=== PATIENT | female | born 1990 | race African-American/Black ===

== ENCOUNTER 2016-12-10 18:23 | Emergency (ER) | payer OTHER, MEDICAID ==
[2016-12-10 21:02] LABS: CONTROL LINE UCG INT CTR LINE PRESENT
[2016-12-10] MEDS ORDERED: PHENAZOPYRIDINE 100 MG TAB As Ordered ONE (21:26)
[2016-12-10] MEDS ORDERED: CIPROFLOXACIN 500 MG TAB As Ordered ONE (21:26)
--- NOTE | 2016-12-10 21:33 | EDDOCDS ---
Nurse's Notes [facility] Name: Antonietta Camarillo Age: 26 yrs Sex: Female : 1990 Arrival Date: 12/10/2016 Time: 18:23 Bed Triage 3 Private MD: NO PRIMARY PHYSICIAN, . Diagnosis: Urinary tract infection, site not specified Presentation: 12/10 18:37 Presenting complaint: Patient states: pt reports vaginal discharge, denies pain with ead urination. "I don't know if I have a UTI, BV, or a yeast infection." Reports lower abdominal pain, pressure/cramping. Adult Sepsis Screening: The patient does not have new or worsening altered mentation. Patient's respiratory rate is less than 22. Systolic blood pressure is greater than 100. Patient has a qSOFA score of 0- Negative Sepsis Screen. Suicide/Homicide risk assessment- the patient denies having any suicidal and/or homicidal ideations and does not present with any other emotional, behavioral or mental health complaints. Status: Patient is not a career services representative or dependent. Transition of care: patient was not received from another setting of care. 18:37 Acuity: TAD Level 3 ead 18:37 Method Of Arrival: Walkin/Carried/Asstd ead Triage Assessment: 18:39 General: Appears in no apparent distress, comfortable, Behavior is appropriate for age, ead cooperative. Pain: Denies pain. HIV screening NA for this visit Offered previously. GI: Reports lower abdominal pain. : Reports discharge Denies burning with urination, vaginal bleeding. Derm: Skin is pink, warm & dry. 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 none - PMHx: Anemia; - PSHx: none; - Social history: Smoking status: Patient states former smoker of tobacco. No barriers to communication noted, The patient speaks fluent Kazakh, Speaks appropriately for age. - Family history: Not pertinent. - : The pt / caregiver states he / she is not on anticoagulants. Home medication list is obtained from the patient. - Exposure Risk Screening:: None identified. Screenin:29 Screening information is obtained from the patient. Fall risk: No risks identified. ck1 Assistance ADL's: requires no assistance with activities of daily living. Abuse/DV Screen: The patient / caregiver reports he/she is: not in a situation that causes fear, pain or injury. Nutritional screening: No deficits noted. Advance Directives: Currently, there is no health care proxy. home support is adequate. Assessment: 21:29 General: Appears in no apparent distress, comfortable, Behavior is appropriate for age, ck1 cooperative. Pain: Denies pain. Respiratory: Respiratory effort is unlabored, Respiratory pattern is regular, symmetrical. : Denies burning with urination, vaginal bleeding. Derm: Skin is intact, is healthy with good turgor, Skin is pink, warm & dry. Vital Signs: 18:25 BP 133 / 87; Pulse 86; Resp 18 S; Temp 97.6(O); Pulse Ox 100% on R/A; Weight 50.8 kg gr2 (R); Height 5 ft. 4 in. (162.56 cm) (R); Pain 2/10; 21:27 BP 126 / 80 LA Sitting (auto/reg); Pulse 71; Resp 16; Temp 97.9(O); Pulse Ox 99% on jrd R/A; Pain 0/10; 18:25 Body Mass Index 19.22 (50.80 kg, 162.56 cm) gr2 Vitals: 18:25 Log In Time: December 10, 2016 at 18:25. gr2 ED Course: 18:25 Patient visited by Yoli Landa. gr2 18:25 NO PRIMARY PHYSICIAN, . is Private Physician. gr2 18:25 Patient moved to Waiting gr2 18:26 Patient visited by Yoli Landa. gr2 18:27 Patient moved to Pre RCE gr2 18:38 Triage Initiated ead 20:31 Patient moved to Triage 3 jrd 20:34 Patient visited by Janice Hart RN. ck1 20:39 UCG- In Lab Sent. jrd 20:39 Urine Culture Sent. jrd 20:39 UA Sent. jrd 20:43 [facility] Gan [facility]. ef1 20:43 Yosi Antony DO is Attending Physician. ef1 20:43 Patient visited by Felicia Gan PA-C. ef1 21:13 Patient visited by Liat Mathis RN. nn1 21:25 [facility] is Referral Physician. ef1 21:27 Patient visited by Danny Andrew PCA. jrd 21:29 The patient / caregiver is instructed regarding the plan of care and ED course. ck1 21:29 No IV's were initiated during this patient's visit. No procedures done that require ck1 assistance. Administered Medications: 21:28 Drug: Ciprofloxacin 500 mg [ciprofloxacin 500 mg tablet (1 tabs)] Route: PO; ck1 21:28 Drug: Phenazopyridine 200 mg [phenazopyridine 100 mg tablet (2 tabs)] Route: PO; ck1 Order Results: Lab Order: UA; SPEC'M 12/10/16 20:36 Test: APPEARANCE, URINE; Value: HAZY; Range: CLEAR; Status: F Test: COLOR, URINE; Value: YELLOW; Range: YELLOW; Status: F Test: PH,URINE; Value: 6.0; Range: 5.0-9.0; Units: UNITS; Status: F Test: SPECIFIC GRAVITY URINE AUTO; Value: 1.006; Range: 1.002-1.035; Status: F Test: PROTEIN, URINE AUTO; Value: NEGATIVE; Range: NEGATIVE; Units: mg/dL; Status: F Test: GLUCOSE, URINE (UA) AUTO; Value: NEGATIVE; Range: NEGATIVE; Units: mg/dL; Status: F Test: KETONE, URINE AUTO; Value: NEGATIVE; Range: NEGATIVE; Units: mg/dL; Status: F Test: UROBILINOGEN, URINE AUTO; Value: 0.2; Range: 0.0-2.0; Units: mg/dL; Status: F Test: BILIRUBIN, URINE AUTO; Value: NEGATIVE; Range: NEGATIVE; Status: F Test: NITRITE, URINE AUTO; Value: POSITIVE; Range: NEGATIVE; Status: F Test: LEUKOCYTE ESTERASE, URINE AUTO; Value: 1+; Range: NEGATIVE; Abnormal: Above high normal; Status: F Test: BLOOD, URINE BLOOD; Value: NEGATIVE; Range: NEGATIVE; Status: F Test: SPERM, URINE AUTO; Range: NONE; Status: I Test: WBC, URINE AUTO; Value: 7; Range: 0-3; Abnormal: Above high normal; Units: /HPF; Status: F Test: RBC, URINE AUTO; Value: 2; Range: 0-3; Units: /HPF; Status: F Test: BACTERIA, URINE AUTO; Value: 2+; Range: NEGATIVE; Abnormal: Above high normal; Status: F Test: SQUAMOUS EPITHELIAL CELL UR AU; Value: 5; Range: 0-6; Units: /HPF; Status: F Test: MUCUS, URINE; Value: SMALL; Range: NEGATIVE; Status: F Test: HYALINE CAST, URINE AUTO; Value: 0; Range: 0-1; Units: /LPF; Status: F Lab Order: UCG- In Lab; SPEC'M 12/10/16 20:36 Test: URINE PREG TEST; Value: NEGATIVE; Range: NEGATIVE; Status: F Outcome: 21:25 Discharge ordered by Provider. ef1 21:28 Discharge Assessment: Patient awake, alert and oriented x 3. No cognitive and/or ck1 functional deficits noted. Patient verbalized understanding of disposition instructions. patient administered narcotics - no. The following High Risk Discharge criteria are identified: None. Discharged to home ambulatory. Condition: stable. Discharge instructions given to patient, Instructed on discharge instructions, follow up and referral plans. medication usage, Demonstrated understanding of instructions, medications, Pt was receptive of discharge instructions/ teaching. No special radiology studies were completed. Property :Personal belongings accompany Pt. 21:31 Prescriptions given X 2. ck1 21:32 Patient left the ED. nn1 Signatures: Janice Hart,RN RN ck1 Felicia Gan PAMartyC PA-C ef1 Yoli Landa gr2 Deb MyersRN Danny Flynn PCA WASTEWATER PROCESS ENGINEER Liat Gonzalez RN RN nn1 MTDD
--- NOTE | 2016-12-10 21:33 | EDDOCDS ---
Physician Documentation [facility] Name: Antonietta Camarillo Age: 26 yrs Sex: Female : 1990 Arrival Date: 12/10/2016 Time: 18:23 Bed Triage 3 Private MD: NO PRIMARY PHYSICIAN, . Disposition: 12/10/16 21:25 Discharged to Home/Self Care. Impression: Urinary tract infection, site not specified. - Condition is Stable. - Discharge Instructions: Urinary Tract Infection, [id number]. - Prescriptions for Cipro 500 mg Oral Tablet - take 1 tablet by ORAL route every 12 hours; 14 tablet. Pyridium 200 mg Oral Tablet - take 1 tablet by ORAL route every 8 hours for 3 days; 9 tablet. - Medication Reconciliation, Referral List Call for Appointment, Local Pharmacy Hours form. - [facility] ; When: 1 - 2 days; Reason: Recheck today's complaints, Continuance of care. Follow up: Emergency Department; Reason: Worsening of conditions. - Problem is new. - Symptoms have improved. Historical: - Allergies: Aspirin (Unknown); Latex (Rash); Macrobid (skin peeling and tongue swelling); Bactrim; - Home Meds: 1. none - PMHx: Anemia; - PSHx: none; - Social history: Smoking status: Patient states former smoker of tobacco. No barriers to communication noted, The patient speaks fluent Armenian, Speaks appropriately for age. - Family history: Not pertinent. - : The pt / caregiver states he / she is not on anticoagulants. Home medication list is obtained from the patient. - Exposure Risk Screening:: None identified. 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 4 in. (162.56 cm) (R); Pain 2/10; 21:27 BP 126 / 80 LA Sitting (auto/reg); Pulse 71; Resp 16; Temp 97.9(O); Pulse Ox 99% on jrd R/A; Pain 0/10; 18:25 Body Mass Index 19.22 (50.80 kg, 162.56 cm) gr2 MDM: 18:28 UA Ordered. EDMS 18:28 Urine Culture Ordered. EDMS 18:28 UCG- In Lab Ordered. EDMS 21:17 UA Reviewed. ef1 21:17 UCG- In Lab Reviewed. ef1 21:24 Ciprofloxacin 500 mg PO once ordered. ef1 21:24 Phenazopyridine 200 mg PO once ordered. ef1 Administered Medications: 21:28 Drug: Ciprofloxacin 500 mg [ciprofloxacin 500 mg tablet (1 tabs)] Route: PO; ck1 21:28 Drug: Phenazopyridine 200 mg [phenazopyridine 100 mg tablet (2 tabs)] Route: PO; ck1 Signatures: Dispatcher [employer] EDJanice Benjamin,RN RN ck1 Felicia Gan, PA-C PA-C ef1 Deb Myers,RN RN Liat WodosRN RN nn1 MTDD
--- NOTE | 2016-12-12 22:33 | EDDOCDS ---
Nurse's Notes [facility] Name: Antonietta Camarillo Age: 26 yrs Sex: Female : 1990 Arrival Date: 12/10/2016 Time: 18:23 Bed Triage 3 Private MD: NO PRIMARY PHYSICIAN, . Diagnosis: Urinary tract infection, site not specified Presentation: 12/10 18:37 Presenting complaint: Patient states: pt reports vaginal discharge, denies pain with ead urination. "I don't know if I have a UTI, BV, or a yeast infection." Reports lower abdominal pain, pressure/cramping. Adult Sepsis Screening: The patient does not have new or worsening altered mentation. Patient's respiratory rate is less than 22. Systolic blood pressure is greater than 100. Patient has a qSOFA score of 0- Negative Sepsis Screen. Suicide/Homicide risk assessment- the patient denies having any suicidal and/or homicidal ideations and does not present with any other emotional, behavioral or mental health complaints. 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 Transition of care: patient was not received from another setting of care. 18:37 Acuity: TAD Level 3 ead 18:37 Method Of Arrival: Walkin/Carried/Asstd ead Triage Assessment: 18:39 General: Appears in no apparent distress, comfortable, Behavior is appropriate for age, ead cooperative. Pain: Denies pain. HIV screening NA for this visit Offered previously. GI: Reports lower abdominal pain. : Reports discharge Denies burning with urination, vaginal bleeding. Derm: Skin is pink, warm & dry. 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 none - PMHx: Anemia; - PSHx: none; - Social history: Smoking status: Patient states former smoker of tobacco. No barriers to communication noted, The patient speaks fluent Ukrainian, Speaks appropriately for age. - Family history: Not pertinent. - : The pt / caregiver states he / she is not on anticoagulants. Home medication list is obtained from the patient. - Exposure Risk Screening:: None identified. Screenin:29 Screening information is obtained from the patient. Fall risk: No risks identified. ck1 Assistance ADL's: requires no assistance with activities of daily living. Abuse/DV Screen: The patient / caregiver reports he/she is: not in a situation that causes fear, pain or injury. Nutritional screening: No deficits noted. Advance Directives: Currently, there is no health care proxy. home support is adequate. Assessment: 21:29 General: Appears in no apparent distress, comfortable, Behavior is appropriate for age, ck1 cooperative. Pain: Denies pain. Respiratory: Respiratory effort is unlabored, Respiratory pattern is regular, symmetrical. : Denies burning with urination, vaginal bleeding. Derm: Skin is intact, is healthy with good turgor, Skin is pink, warm & dry. Vital Signs: 18:25 BP 133 / 87; Pulse 86; Resp 18 S; Temp 97.6(O); Pulse Ox 100% on R/A; Weight 50.8 kg gr2 (R); Height 5 ft. 4 in. (162.56 cm) (R); Pain 2/10; 21:27 BP 126 / 80 LA Sitting (auto/reg); Pulse 71; Resp 16; Temp 97.9(O); Pulse Ox 99% on jrd R/A; Pain 0/10; 18:25 Body Mass Index 19.22 (50.80 kg, 162.56 cm) gr2 Vitals: 18:25 Log In Time: December 10, 2016 at 18:25. gr2 ED Course: 18:25 Patient visited by Yoli Landa. gr2 18:25 NO PRIMARY PHYSICIAN, . is Private Physician. gr2 18:25 Patient moved to Waiting gr2 18:26 Patient visited by Yoli Landa. gr2 18:27 Patient moved to Pre RCE gr2 18:38 Triage Initiated ead 20:31 Patient moved to Triage 3 jrd 20:34 Patient visited by Janice Hart RN. ck1 20:39 UCG- In Lab Sent. jrd 20:39 Urine Culture Sent. jrd 20:39 UA Sent. jrd 20:43 [facility]. ef1 20:43 Yosi Antony DO is Attending Physician. ef1 20:43 Patient visited by Felicia Gan PA-C. ef1 21:13 Patient visited by Liat Mathis RN. nn1 21:25 [facility] is Referral Physician. ef1 21:27 Patient visited by Danny Andrew PCA. jrd 21:29 The patient / caregiver is instructed regarding the plan of care and ED course. ck1 21:29 No IV's were initiated during this patient's visit. No procedures done that require ck1 assistance. 21:35 [facility] Payment Agreement was scanned into enEvolv and attached to record. gjb 12/11 10:33 T-Sheet-- Draft Copy was scanned into enEvolv and attached to record. gb Administered Medications: 12/10 21:28 Drug: Ciprofloxacin 500 mg [ciprofloxacin 500 mg tablet (1 tabs)] Route: PO; ck1 21:28 Drug: Phenazopyridine 200 mg [phenazopyridine 100 mg tablet (2 tabs)] Route: PO; ck1 Order Results: Lab Order: UA; SPEC'M 12/10/16 20:36 Test: APPEARANCE, URINE; Value: HAZY; Range: CLEAR; Status: F Test: COLOR, URINE; Value: YELLOW; Range: YELLOW; Status: F Test: PH,URINE; Value: 6.0; Range: 5.0-9.0; Units: UNITS; Status: F Test: SPECIFIC GRAVITY URINE AUTO; Value: 1.006; Range: 1.002-1.035; Status: F Test: PROTEIN, URINE AUTO; Value: NEGATIVE; Range: NEGATIVE; Units: mg/dL; Status: F Test: GLUCOSE, URINE (UA) AUTO; Value: NEGATIVE; Range: NEGATIVE; Units: mg/dL; Status: F Test: KETONE, URINE AUTO; Value: NEGATIVE; Range: NEGATIVE; Units: mg/dL; Status: F Test: UROBILINOGEN, URINE AUTO; Value: 0.2; Range: 0.0-2.0; Units: mg/dL; Status: F Test: BILIRUBIN, URINE AUTO; Value: NEGATIVE; Range: NEGATIVE; Status: F Test: NITRITE, URINE AUTO; Value: POSITIVE; Range: NEGATIVE; Status: F Test: LEUKOCYTE ESTERASE, URINE AUTO; Value: 1+; Range: NEGATIVE; Abnormal: Above high normal; Status: F Test: BLOOD, URINE BLOOD; Value: NEGATIVE; Range: NEGATIVE; Status: F Test: SPERM, URINE AUTO; Range: NONE; Status: I Test: WBC, URINE AUTO; Value: 7; Range: 0-3; Abnormal: Above high normal; Units: /HPF; Status: F Test: RBC, URINE AUTO; Value: 2; Range: 0-3; Units: /HPF; Status: F Test: BACTERIA, URINE AUTO; Value: 2+; Range: NEGATIVE; Abnormal: Above high normal; Status: F Test: SQUAMOUS EPITHELIAL CELL UR AU; Value: 5; Range: 0-6; Units: /HPF; Status: F Test: MUCUS, URINE; Value: SMALL; Range: NEGATIVE; Status: F Test: HYALINE CAST, URINE AUTO; Value: 0; Range: 0-1; Units: /LPF; Status: F Lab Order: Urine Culture; SPEC'M 12/10/16 20:36 Test: URINE CULTURE; Value: ORGANISM 1: ESCHERICHIA COLI; Status: F Test: URINE CULTURE; Value: ESCHERICHIA COLI; Status: F Test: URINE CULTURE; Value: COLONY COUNT CFU/ml >100,000; Status: F Test: URINE CULTURE; Value: GRAM NEG SENSI - VITEK 80; Status: F Test: URINE CULTURE; Value: Method: VIT2; Status: F Test: URINE CULTURE; Value: EXTD BRD SPCTRM BETA LACTAMASE -; Status: F Test: URINE CULTURE; Value: TRIMETHOPRIM/SULFAMETHOXAZOLE <=20 S; Status: F Test: URINE CULTURE; Value: AMPICILLIN 8 S; Status: F Test: URINE CULTURE; Value: GENTAMICIN <=1 S; Status: F Test: URINE CULTURE; Value: NITROFURANTOIN <=16 S; Status: F Test: URINE CULTURE; Value: CEFAZOLIN <=4 S; Status: F Test: URINE CULTURE; Value: LEVOFLOXACIN <=0.12 S; Status: F Test: URINE CULTURE; Value: TOBRAMYCIN <=1 S; Status: F Test: URINE CULTURE; Value: CEFTRIAXONE <=1 S; Status: F Test: URINE CULTURE; Value: CEFTAZIDIME <=1 S; Status: F Test: URINE CULTURE; Value: AMPICILLIN/SULBACTAM 4 S; Status: F Test: URINE CULTURE; Value: PIPERACILLIN/TAZOBACTAM <=4 S; Status: F Test: URINE CULTURE; Value: AZTREONAM <=1 S; Status: F Test: URINE CULTURE; Value: ERTAPENEM <=0.5 S; Status: F Test: URINE CULTURE; Value: MEROPENEM <=0.25 S; Status: F Test: URINE CULTURE; Value: TIGECYCLINE <=0.5 S; Status: F Test: URINE CULTURE; Value: CEFEPIME <=1 S; Status: F Lab Order: UCG- In Lab; SPEC'M 12/10/16 20:36 Test: URINE PREG TEST; Value: NEGATIVE; Range: NEGATIVE; Status: F Outcome: 21:25 Discharge ordered by Provider. ef1 21:28 Discharge Assessment: Patient awake, alert and oriented x 3. No cognitive and/or ck1 functional deficits noted. Patient verbalized understanding of disposition instructions. patient administered narcotics - no. The following High Risk Discharge criteria are identified: None. Discharged to home ambulatory. Condition: stable. Discharge instructions given to patient, Instructed on discharge instructions, follow up and referral plans. medication usage, Demonstrated understanding of instructions, medications, Pt was receptive of discharge instructions/ teaching. No special radiology studies were completed. Property :Personal belongings accompany Pt. 21:31 Prescriptions given X 2. ck1 21:32 Patient left the ED. nn1 Signatures: Romelia Shah, Reg Reg Janice Robledo,RN RN ck1 Felicia Gan PAMartyC PA-C ef1 Yoli Landa gr2 Deb Myers,RN RN Danny Velez PCA SCHOOL CURRICULUM DEVELOPER Liat Gonzalez RN RN nn1 Angie Gonzalez Chart Complete MTDD
--- NOTE | 2016-12-12 22:33 | EDDOCDS ---
Physician Documentation [facility] Name: Antonietta Camarillo Age: 26 yrs Sex: Female : 1990 Arrival Date: 12/10/2016 Time: 18:23 Bed Triage 3 Private MD: NO PRIMARY PHYSICIAN, . Disposition: 12/10/16 21:25 Discharged to Home/Self Care. Impression: Urinary tract infection, site not specified. - Condition is Stable. - Discharge Instructions: Urinary Tract Infection, [id number]. - Prescriptions for Cipro 500 mg Oral Tablet - take 1 tablet by ORAL route every 12 hours; 14 tablet. Pyridium 200 mg Oral Tablet - take 1 tablet by ORAL route every 8 hours for 3 days; 9 tablet. - Medication Reconciliation, Referral List Call for Appointment, Local Pharmacy Hours form. - [facility] ; When: 1 - 2 days; Reason: Recheck today's complaints, Continuance of care. Follow up: Emergency Department; Reason: Worsening of conditions. - Problem is new. - Symptoms have improved. Historical: - Allergies: Aspirin (Unknown); Latex (Rash); Macrobid (skin peeling and tongue swelling); Bactrim; - Home Meds: 1. none - PMHx: Anemia; - PSHx: none; - Social history: Smoking status: Patient states former smoker of tobacco. No barriers to communication noted, The patient speaks fluent Wolof, Speaks appropriately for age. - Family history: Not pertinent. - : The pt / caregiver states he / she is not on anticoagulants. Home medication list is obtained from the patient. - Exposure Risk Screening:: None identified. 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 4 in. (162.56 cm) (R); Pain 2/10; 21:27 BP 126 / 80 LA Sitting (auto/reg); Pulse 71; Resp 16; Temp 97.9(O); Pulse Ox 99% on jrd R/A; Pain 0/10; 18:25 Body Mass Index 19.22 (50.80 kg, 162.56 cm) gr2 MDM: 18:28 UA Ordered. EDMS 18:28 Urine Culture Ordered. EDMS 18:28 UCG- In Lab Ordered. EDMS 21:17 UA Reviewed. ef1 21:17 UCG- In Lab Reviewed. ef1 21:24 Ciprofloxacin 500 mg PO once ordered. ef1 21:24 Phenazopyridine 200 mg PO once ordered. ef1 21:35 [facility] Payment Agreement was scanned into [employer] and attached to record. [facility] : Financial registration complete. b 12/11 09: T-Sheet-- Draft Copy was scanned into [employer] and attached to record. gb Administered Medications: 12/10 21:28 Drug: Ciprofloxacin 500 mg [ciprofloxacin 500 mg tablet (1 tabs)] Route: PO; ck1 :28 Drug: Phenazopyridine 200 mg [phenazopyridine 100 mg tablet (2 tabs)] Route: PO; ck1 Signatures: Dispatcher [employer] EDRomelia Jenkins, Reg Reg gb Janice Hart,RN RN ck1 Felicia Gan, PA-C PA-C ef1 Deb MyersRN RN Liat WoodsRN RN nn1 Angie Gonzalez [facility] The chart was reviewed and I authenticate all verbal orders and agree with the evaluation and treatment provided.Attachments: :35 [facility] Payment Agreement [facility] 12/11 10:33 T-Sheet-- Draft Copy gb Chart Complete MTDD
--- NOTE | 2016-12-12 22:33 | EDDOCDS ---
Physician Documentation [facility] Name: Antonietta Camarillo Age: 26 yrs Sex: Female : 1990 Arrival Date: 12/10/2016 Time: 18:23 Bed Triage 3 Private MD: NO PRIMARY PHYSICIAN, . Disposition: 12/10/16 21:25 Discharged to Home/Self Care. Impression: Urinary tract infection, site not specified. - Condition is Stable. - Discharge Instructions: Urinary Tract Infection, [id number]. - Prescriptions for Cipro 500 mg Oral Tablet - take 1 tablet by ORAL route every 12 hours; 14 tablet. Pyridium 200 mg Oral Tablet - take 1 tablet by ORAL route every 8 hours for 3 days; 9 tablet. - Medication Reconciliation, Referral List Call for Appointment, Local Pharmacy Hours form. - [facility]: [facility] ; When: 1 - 2 days; Reason: Recheck today's complaints, Continuance of care. Follow up: Emergency Department; Reason: Worsening of conditions. - Problem is new. - Symptoms have improved. Historical: - Allergies: Aspirin (Unknown); Latex (Rash); Macrobid (skin peeling and tongue swelling); Bactrim; - Home Meds: 1. none - PMHx: Anemia; - PSHx: none; - Social history: Smoking status: Patient states former smoker of tobacco. No barriers to communication noted, The patient speaks fluent Faroese, Speaks appropriately for age. - Family history: Not pertinent. - : The pt / caregiver states he / she is not on anticoagulants. Home medication list is obtained from the patient. - Exposure Risk Screening:: None identified. 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 4 in. (162.56 cm) (R); Pain 2/10; 21:27 BP 126 / 80 LA Sitting (auto/reg); Pulse 71; Resp 16; Temp 97.9(O); Pulse Ox 99% on jrd R/A; Pain 0/10; 18:25 Body Mass Index 19.22 (50.80 kg, 162.56 cm) gr2 MDM: 18:28 UA Ordered. EDMS 18:28 Urine Culture Ordered. EDMS 18:28 UCG- In Lab Ordered. EDMS 21:17 UA Reviewed. ef1 21:17 UCG- In Lab Reviewed. ef1 21:24 Ciprofloxacin 500 mg PO once ordered. ef1 21:24 Phenazopyridine 200 mg PO once ordered. ef1 21:35 [facility] Payment Agreement was scanned into Qu[employer] and attached to record. [facility] : Financial registration complete. b 12/11 09: T-Sheet-- Draft Copy was scanned into Quire and attached to record. gb Administered Medications: 12/10 21:28 Drug: Ciprofloxacin 500 mg [ciprofloxacin 500 mg tablet (1 tabs)] Route: PO; ck1 :28 Drug: Phenazopyridine 200 mg [phenazopyridine 100 mg tablet (2 tabs)] Route: PO; ck1 Signatures: Dispatcher [employer] EDRomelia Jenkins, Reg Reg gb Janice Hart,RN RN ck1 Felicia Gan, PA-C PA-C ef1 Deb MyersRN RN Liat WoodsRN RN nn1 Angie Gonzalez [facility] The chart was reviewed and I authenticate all verbal orders and agree with the evaluation and treatment provided.Attachments: :35 [facility] Payment Agreement [facility] 12/11 10:33 T-Sheet-- Draft Copy gb Chart Complete MTDD
== END 2016-12-10 21:32 | disposition home or self-care (01) ==
LOC: M ED 18:23
DX: N39.0 Urinary tract infection, site not specified (principal); D64.9 Anemia, unspecified; Z87.891 Personal history of nicotine dependence; Z88.6 Allergy status to analgesic agent; Z91.040 Latex allergy status; Z88.2 Allergy status to sulfonamides

== ENCOUNTER → 2016-12-15 | Outpatient (REF) | payer MEDICAID ==
[2016-12-15 20:39] LABS: CONTROL LINE UCG INT CTR LINE PRESENT
== END ==
LOC: M LAB REF 08:53
PROVIDERS: ATTEND Physician Assistant
DX: N89.8 Other specified noninflammatory disorders of vagina (principal); N91.2 Amenorrhea, unspecified

== ENCOUNTER → 2017-02-14 | Outpatient (REF) | payer MEDICAID | LOC: M LAB REF 14:42 | PROVIDERS: ATTEND Physician Assistant Medical | DX: N39.0 Urinary tract infection, site not specified (principal) ==

== ENCOUNTER → 2017-02-26 | Outpatient (CLI) | payer MEDICAID ==
[2017-02-26 17:42] LABS: BASO % 0.3 % (0.0-1.0); EOS % 0.2 % (0.0-3.0); LARGE UNSTAINED CELL # 0.1 K/mm3 (0.0-0.4); LARGE UNSTAINED CELL % 1.6 % (0.0-4.0); LYMPH % 12.2 % (24.0-44.0); MEAN CORPUSCULAR HEMOGLOBIN 26.6 pg (27.0-33.0); MEAN CORPUSCULAR HGB CONC 31.7 g/dl (32.0-36.5); MEAN CORPUSCULAR VOLUME 83.8 fl (80.0-96.0); MONO # 0.4 K/mm3 (0.0-0.8); MONO % 4.5 % (0.0-5.0); NEUTROPHILS # 6.6 K/mm3 (1.8-7.7); NEUTROPHILS % 81.2 % (36.0-66.0); PLATELET COUNT, AUTOMATED 230 k/mm3 (150-450); RED CELL DISTRIBUTION WIDTH 18.6 % (11.5-14.5); WHITE BLOOD COUNT 8.1 K/mm3 (4.0-10.0)
[2017-03-01 09:46] LABS: HBsAg Prenatal NEGATIVE (NEGATIVE)
== END ==
LOC: M LAB 16:10
PROVIDERS: ATTEND Obstetrics & Gynecology
DX: Z34.81 Encounter for supervision of other normal pregnancy, first trimester (principal)

== ENCOUNTER → 2020-05-22 | Outpatient (REF) | payer OTHER | LOC: M LAB REF 16:18 | PROVIDERS: ATTEND Physician Assistant | DX: N30.00 Acute cystitis without hematuria (principal) ==

== ENCOUNTER → 2020-11-20 | Outpatient (REF) | payer OTHER ==
[2020-11-20 18:56] LABS: CHLAMYDIA DNA AMPLIFICATION NEGATIVE (NEGATIVE); GC DNA AMPLIFICATION NEGATIVE (NEGATIVE)
== END ==
LOC: M SFHCWAGY 16:51
PROVIDERS: ATTEND Nurse Practitioner Family
DX: Z11.3 Encounter for screening for infections with a predominantly sexual mode of transmission (principal)
CPT/HCPCS: 81025; 87210; 87661; G0463

== ENCOUNTER → 2020-12-19 | Outpatient (REF) | payer OTHER ==
[2020-12-19 15:16] LABS: HEMATOCRIT 38.3 % (36.0-47.0); HEMOGLOBIN 12.2 g/dl (12.0-15.5); MEAN CORPUSCULAR HEMOGLOBIN 28.2 pg (27.0-33.0); MEAN CORPUSCULAR HGB CONC 31.9 g/dl (32.0-36.5); MEAN CORPUSCULAR VOLUME 88.7 fl (80.0-96.0); PLATELET COUNT, AUTOMATED 220 10^3/uL (150-450); RED BLOOD COUNT 4.32 10^6/uL (4.00-5.40); WHITE BLOOD COUNT 7.4 10^3/uL (4.0-10.0)
[2020-12-19 15:48] LABS: ALT/SGPT 15 U/L (12-78); BILIRUBIN,TOTAL 0.4 MG/DL (0.2-1.0); GLOMERULAR FILTRATION RATE > 60.0 (>60); LDH LACTATE DEHYDROGENASE 155 U/L (84-246); URIC ACID 2.4 MG/DL (2.6-6.0)
[2020-12-19 15:49] LABS: CREATININE,RANDOM URINE 71.1 MG/DL; TOTAL PROTEIN,RANDOM URINE 11.8 MG/DL (0.0-12.0)
[2020-12-19 16:36] LABS: HEPATITIS C VIRUS ABY INDEX < 0.0 INDEX (<0.8)
[2020-12-19 16:37] LABS: HIV 1&2 SCREEN CENTAUR NEGATIVE (NEGATIVE)
[2020-12-20 11:30] LABS: CHLAMYDIA DNA AMPLIFICATION NEGATIVE (NEGATIVE); GC DNA AMPLIFICATION NEGATIVE (NEGATIVE)
== END ==
LOC: M PLALAB 13:58
PROVIDERS: ATTEND Advanced Practice Midwife
DX: O10.919 Unspecified pre-existing hypertension complicating pregnancy, unspecified trimester (principal); Z3A.00 Weeks of gestation of pregnancy not specified

== ENCOUNTER → 2021-02-14 | Outpatient (REF) | payer OTHER | LOC: M SFHCWAGY 17:31 | PROVIDERS: ATTEND Advanced Practice Midwife | DX: O10.012 Pre-existing essential hypertension complicating pregnancy, second trimester (principal) | CPT/HCPCS: 87086; G0463 ==

== ENCOUNTER → 2021-03-06 | Outpatient (CLI) | payer OTHER ==
--- NOTE | 2021-03-06 11:11 | REP ---
INDICATION: ANATOMY. COMPARISON: None. TECHNIQUE: Real-time sonographic evaluation of the gravid uterus performed. FINDINGS: Estimated gestational age is20 weeks 2 days, EDC 07/22/2021. Today's measurements indicate appropriate growth. Presentation: Variable Placenta posterior, grade 1, without evidence of placenta previa. heart rate is recorded at 157 beats per minute. Amniotic fluid is subjectively normal. Closed cervical length is measured at 3.4 cm. Biometry chart: BPD: 45 mm, 19 weeks 4 days, 31st percentile. HC: 172 mm, 19 weeks 5 days, 34th percentile AC: 150 mm, 20 weeks 1 days, 48th percentile Femur length: 33 mm, 20 weeks 3 days, 52nd percentile HC to AC ratio: 1.15, normal range 1.06-1.24. Estimated weight: 340g, 41st percentile. anatomy: Cranium: Grossly normal Lateral Ventricles/Choroid Plexus: Grossly normal Posterior Fossa/Cerebellum: Grossly normal Nose/lips/profile: Grossly normal Four chamber heart: Grossly normal Right ventricular outflow tract: Grossly normal Left ventricular outflow tract: Grossly normal Left-sided stomach: Grossly normal Kidneys: Grossly normal Bladder: Grossly normal Cord Insertion: Grossly normal 3 vessel cord: Grossly normal Spine: Grossly normal Adjacent to the maternal right ovary is a small cystic structure measuring 2.7 x 1.6 x 1.9 cm. IMPRESSION: Viable single intrauterine gestation as above. <Electronically signed by Rigo Aponte > 03/06/21 [id number]
== END ==
LOC: M WHC 08:56
PROVIDERS: ATTEND Advanced Practice Midwife
DX: O10.12 Pre-existing hypertensive heart disease complicating childbirth (principal); Z3A.20 20 weeks gestation of pregnancy

== ENCOUNTER → 2021-05-01 | Outpatient (REF) | payer OTHER ==
[2021-05-01 14:06] LABS: HEMATOCRIT 38.5 % (36.0-47.0); HEMOGLOBIN 12.4 g/dl (12.0-15.5); MEAN CORPUSCULAR HEMOGLOBIN 29.6 pg (27.0-33.0); MEAN CORPUSCULAR HGB CONC 32.2 g/dl (32.0-36.5); MEAN CORPUSCULAR VOLUME 91.9 fl (80.0-96.0); PLATELET COUNT, AUTOMATED 204 10^3/uL (150-450); RED BLOOD COUNT 4.19 10^6/uL (4.00-5.40); WHITE BLOOD COUNT 6.7 10^3/uL (4.0-10.0)
== END ==
LOC: M PLALAB 10:28
PROVIDERS: ATTEND Advanced Practice Midwife
DX: O10.012 Pre-existing essential hypertension complicating pregnancy, second trimester (principal)

== ENCOUNTER → 2021-05-28 | Outpatient (CLI) | payer OTHER ==
[~2021-05-28] MED LIST: BUSP5TA PO; ZOLO25TA PO
--- NOTE | 2021-05-28 15:55 | REP ---
INDICATION: CHRONIC HYPERTENSION,GROWTH COMPARISON: 03/06/2021 TECHNIQUE: Transabdominal obstetrical ultrasound with color Doppler evaluation. FINDINGS: Examination demonstrates a single live intrauterine in cephalic presentation. motion is identified by technologist. Placenta is noted posterofundally and grade 1 without evidence for placenta previa or abruption. Amniotic fluid volume is subjectively low. Cervix measures 3.5 cm in length and appears closed. Selected gestational age: 32 weeks 1 day with HARRIS 07/22/2021. Gestational age by current measurements 32 weeks 6 days with HARRIS 07/17/2021. FHR equals 132 beats per minute. BPD: 8.3 cm at 33 weeks 2 days HC: 30.0 cm at 33 weeks 1 day AC: 28.5 cm at 32 weeks 3 days FL: 6.1 cm at 31 weeks 5 days HL: 5.8 cm at 33 weeks 2 days HC/AC: 1.05 Estimated weight 1965 grams (49thpercentile). DREA: 7.9 cm (8.6-24.2) Umbilical artery SD ratio: 2.42, 2.60 (1.84-3.86) IMPRESSION: 1. Single live intrauterine in cephalic presentation demonstrating appropriate interval growth. 2. Amniotic fluid volume is minimally below normal range. <Electronically signed by Kofi Spencer > 05/28/21 [id number]
== END ==
LOC: M WHC 13:37
PROVIDERS: ATTEND Advanced Practice Midwife
DX: O10.913 Unspecified pre-existing hypertension complicating pregnancy, third trimester (principal); Z3A.32 32 weeks gestation of pregnancy
CPT/HCPCS: 59025; 76816; G0463

== ENCOUNTER → 2021-06-05 | Outpatient (CLI) | payer OTHER ==
[2021-06-05 16:57] LABS: HEMATOCRIT 36.4 % (36.0-47.0); HEMOGLOBIN 11.8 g/dl (12.0-15.5); MEAN CORPUSCULAR HEMOGLOBIN 29.4 pg (27.0-33.0); MEAN CORPUSCULAR HGB CONC 32.4 g/dl (32.0-36.5); MEAN CORPUSCULAR VOLUME 90.8 fl (80.0-96.0); PLATELET COUNT, AUTOMATED 195 10^3/uL (150-450); RED BLOOD COUNT 4.01 10^6/uL (4.00-5.40); WHITE BLOOD COUNT 6.9 10^3/uL (4.0-10.0)
[2021-06-05 17:20] LABS: TOTAL PROTEIN,RANDOM URINE 24.1 MG/DL (0.0-12.0)
[2021-06-05 17:27] LABS: ALT/SGPT 30 U/L (12-78); BILIRUBIN,TOTAL 0.3 MG/DL (0.2-1.0); CREATININE FOR GFR 0.67 MG/DL (0.55-1.30); GLOMERULAR FILTRATION RATE > 60.0 (>60); LDH LACTATE DEHYDROGENASE 144 U/L (84-246); URIC ACID 3.3 MG/DL (2.6-6.0)
== END ==
LOC: M PLALAB 15:12
PROVIDERS: ATTEND Advanced Practice Midwife
DX: O10.919 Unspecified pre-existing hypertension complicating pregnancy, unspecified trimester (principal)

== ENCOUNTER 2021-06-06 22:28 | Outpatient (CLI) | payer OTHER ==
[~2021-06-06] VITALS: Ht 157.5 cm; Wt 78.2 kg
[2021-06-06] VITALS (7 sets, daily range): BP systolic 130–142; BP diastolic 83–93
[2021-06-06 23:14] LABS: HEMATOCRIT 32.8 % (36.0-47.0); MEAN CORPUSCULAR HEMOGLOBIN 30.1 pg (27.0-33.0); MEAN CORPUSCULAR HGB CONC 33.5 g/dl (32.0-36.5); MEAN CORPUSCULAR VOLUME 89.6 fl (80.0-96.0); PLATELET COUNT, AUTOMATED 177 10^3/uL (150-450); RED BLOOD COUNT 3.66 10^6/uL (4.00-5.40); WHITE BLOOD COUNT 6.6 10^3/uL (4.0-10.0)
[2021-06-06] MEDS ORDERED: LABETALOL 100MG TAB PO ONE (23:20)
[2021-06-06 23:29] LABS: APPEARANCE, URINE HAZY (CLEAR); BACTERIA, URINE AUTO NEGATIVE (NEGATIVE); BILIRUBIN, URINE AUTO NEGATIVE (NEGATIVE); BLOOD, URINE BLOOD 1+ (NEGATIVE); COLOR, URINE YELLOW (YELLOW); GLUCOSE, URINE (UA) AUTO NEGATIVE (NEGATIVE); KETONE, URINE AUTO NEGATIVE (NEGATIVE); LEUKOCYTE ESTERASE, URINE AUTO NEGATIVE (NEGATIVE); MUCUS, URINE SMALL (NEGATIVE); NITRITE, URINE AUTO NEGATIVE (NEGATIVE); PROTEIN, URINE AUTO NEGATIVE (NEGATIVE); RBC, URINE AUTO 2 /HPF (0-3); SPECIFIC GRAVITY URINE AUTO 1.013 (1.002-1.035); SQUAMOUS EPITHELIAL CELL UR AU 2 /HPF (0-6); UROBILINOGEN, URINE AUTO 0.2 mg/dL (0.0-2.0); WBC, URINE AUTO 1 /HPF (0-3)
[2021-06-06 23:39] LABS: ALT/SGPT 25 U/L (12-78); BILIRUBIN,TOTAL 0.2 MG/DL (0.2-1.0); CREATININE FOR GFR 0.62 MG/DL (0.55-1.30); GLOMERULAR FILTRATION RATE > 60.0 (>60); LDH LACTATE DEHYDROGENASE 135 U/L (84-246)
[2021-06-07 00:02] VITALS: BP 141/88
[2021-06-07 00:02] LABS: CREATININE,RANDOM URINE 72.7 MG/DL
[2021-06-07 00:16] VITALS: BP 149/93
[2021-06-07 00:31] VITALS: BP 136/89
--- NOTE | 2021-06-07 00:37 | REPVR ---
PROCEDURE INFORMATION: Exam: US Biophysical Profile Without Non-Stress Test Exam date and time: 06/06/2021 11:45 PM Age: 30 years old Clinical indication: HTN; TECHNIQUE: Imaging protocol: US biophysical profile without non-stress testing. COMPARISON: US OBS FOLLOW UP OR REPEAT 05/28/2021 1:45 PM FINDINGS: heart rate: 142 bpm Presentation: Cephalic Placenta: Grade 1. Fundal positioning. No placenta previa or placental abruption is identified. Amniotic fluid index: 14.8 cm, which is within normal limits. BIOPHYSICAL PROFILE: Breathin/2 Gross body movements: 2/2 tone: 2/2 Qualitative amniotic fluid: 2/2 Biophysical Profile Score: 8/8 DOPPLER: Umbilical artery Doppler: PSV = 35.7 cm/s. EDV = 14.6 cm/s. S/D ratio = 2.45, which is within normal limits. RI = 0.59, which is within normal limits. There is normal continuous forward flow in the umbilical artery during diastole and no absent or reversed end-diastolic flow is noted. MATERNAL ANATOMY: Cervix: The cervix is closed and measures 4.1 cm in length. Other findings: Limited imaging of the urinary bladder, kidneys, and stomach is unremarkable. IMPRESSION: Biophysical profile score is 8 out of 8. Electronically signed by: Mark Urbano On 06/07/2021 00:36:57 AM
[2021-06-07 00:44] LABS: ALBUMIN 2.5 GM/DL (3.2-5.2); BLOOD UREA NITROGEN 11 MG/DL (7-18); CALCIUM LEVEL 8.1 MG/DL (8.5-10.1); CARBON DIOXIDE LEVEL 23 MEQ/L (21-32); CHLORIDE LEVEL 110 MEQ/L (98-107); GLUCOSE, FASTING 112 MG/DL (70-100); POTASSIUM SERUM 3.7 MEQ/L (3.5-5.1); SODIUM LEVEL 140 MEQ/L (136-145); TOTAL PROTEIN 5.7 GM/DL (6.4-8.2)
[2021-06-07] MEDS ORDERED: busPIRone 5 MG TAB PO PRN (00:45)
[2021-06-07 00:46] VITALS: BP 129/81
--- NOTE | 2021-06-07 01:01 | IPNPDOC ---
Text Note Date of Service The patient was seen on 06/07/21. NOTE Outpatient 30yo HARRIS 07/22/2021. Presents @33w3d with reports of elevated blood pressure at home, headache, shaking and heart palpitations. Denies LOF, bleeding or UC. Hx significant for CHTN but hasn't required labetalol up till now. In addition, hx PTSD, anxiety, depression, no medications since age 18. No apparent distress Mild BP elevations. Cat I tracing Rare UC Start labetalol 100mg daily tonight. PreE panel, urine ratio, CBC essentially unchanged from earlier this week. CMP wnl. BPP /8, DREA 14.8 Pt agrees to try zoloft and buspar at this time. VS,Fishbone, I+O VS, Fishbone, I+O Laboratory Tests 06/06/21 23:00 Vital Signs Date Time Temp Pulse Resp B/P (MAP) Pulse Ox O2 Delivery O2 Flow Rate FiO2 06/06/21 23:41 74 130/93 06/06/21 22:43 98.2 18 Malorie Slade CNM Jun 07, 2021 01:01
[2021-06-07 01:02] VITALS: BP 130/77
[2021-06-07 01:16] VITALS: BP 123/74
--- NOTE | 2021-06-07 01:45 | IPNPDOC ---
Text Note Date of Service The patient was seen on 06/07/21. NOTE Outpatient Feels mild improvement in symptoms since labetalol 100mg and buspar Cat I tracing continues BP within normal range Desires discharge Rx zoloft 25mg and buspar 5mg BID sent to her pharmacy Warnings reviewed. Keep appt next week VS,Fishbone, I+O VS, Fishbone, I+O Laboratory Tests 06/06/21 23:00 Vital Signs Date Time Temp Pulse Resp B/P (MAP) Pulse Ox O2 Delivery O2 Flow Rate FiO2 06/07/21 01:16 75 123/74 (90) 06/06/21 22:43 98.2 18 Malorie Slade CNM Jun 07, 2021 01:45
[2021-06-07] MEDS ORDERED: BUSP5TA PO (01:54)
[2021-06-07] MEDS ORDERED: ZOLO25TA PO (01:54)
== END 2021-06-07 01:50 | disposition home or self-care (01) ==
LOC: M LDO 22:28
PROVIDERS: ATTEND Advanced Practice Midwife
DX: O10.013 Pre-existing essential hypertension complicating pregnancy, third trimester (principal); O99.343 Other mental disorders complicating pregnancy, third trimester; F41.9 Anxiety disorder, unspecified; Z3A.33 33 weeks gestation of pregnancy; F43.10 Post-traumatic stress disorder, unspecified
CPT/HCPCS: 36415; 59025; 76819; 76820; 80053; 81001; 82247; 82565; 82570; 83615; 84156; 84450; 84460; 84550; 85027; G0378; G0463

== ENCOUNTER → 2021-06-16 | Outpatient (CLI) | payer OTHER ==
--- NOTE | 2021-06-16 16:23 | REP ---
INDICATION: GROWTH. COMPARISON: Comparison study June 06, 2021.. TECHNIQUE: Transabdominal obstetric sonography. FINDINGS: Scanning through the gravid uterus demonstrates a viable single intrauterine gestation in cephalic lie. motion is observed and heart rate is recorded at 142 beats per minute. A fundal placenta is seen, grade 1, without evidence of placenta previa. Closed cervical length is not seen due to head position. No extrauterine abnormality is observed. Amniotic fluid is subjectively normal, DREA normal 13.4 cm.. . Biometry chart: BPD 9.0 cm, 36 weeks 2 days Head circumference 31.1 cm, 34 weeks 5 days Abdominal circumference 30.8 cm, 34 weeks 5 days Femur length 6.7 cm, 34 weeks 5 days Humeral length 6.1 cm, 35 weeks 1 day HC AC ratio normal 1.01 Cephalic index normal 0.83 Estimated weight 2540 g, 5 lb 9 oz, 46 percentile for 34 weeks 6 days IMPRESSION: Viable single intrauterine gestation at 35 weeks 1 days by today's composite sonographic criteria. HARRIS by today's sonography July 20, 2021. No complication identified. Expected gestational age estimate based on known HARRIS of 22 July 2021 is 34 weeks 6 days appropriate interval growth. <Electronically signed by Erasmo Pace > 06/16/21 [id number]
== END ==
LOC: M WHC 13:26
PROVIDERS: ATTEND Advanced Practice Midwife
DX: O10.919 Unspecified pre-existing hypertension complicating pregnancy, unspecified trimester (principal); Z3A.35 35 weeks gestation of pregnancy

== ENCOUNTER → 2021-06-19 | Outpatient (REF) | payer OTHER ==
[~2021-06-19] MED LIST changes: +LABE100T4 PO; +PRENTAB9 PO; +TUMS500C PO
== END ==
LOC: M SFHCWAGY 18:23
PROVIDERS: ATTEND Advanced Practice Midwife
DX: Z34.83 Encounter for supervision of other normal pregnancy, third trimester (principal); Z3A.35 35 weeks gestation of pregnancy
CPT/HCPCS: 59025; 87081; G0463

== ENCOUNTER 2021-07-02 13:11 | Outpatient (CLI) | payer OTHER ==
[~2021-07-02] VITALS: Ht 157.5 cm; Wt 73.1 kg
[~2021-07-02 13:11] MED LIST changes: -LABE100T4 PO; -PRENTAB9 PO; -TUMS500C PO
[2021-07-02] MEDS ORDERED: PRENTAB9 PO (13:28)
[2021-07-02] MEDS ORDERED: LABE100T4 PO (13:28)
[2021-07-02] MEDS ORDERED: TUMS500C PO (13:28)
[2021-07-02 13:29] VITALS: BP 99/60
[2021-07-02 13:45] VITALS: BP 104/71
[2021-07-02] MEDS ORDERED: HOME MED LIST COMPLETE! XX SCH (13:45)
[2021-07-02 14:00] VITALS: BP 114/70
[2021-07-02 14:15] VITALS: BP 116/73
[2021-07-02 14:23] LABS: APPEARANCE, URINE HAZY (CLEAR); BACTERIA, URINE AUTO 1+ (NEGATIVE); BILIRUBIN, URINE AUTO NEGATIVE (NEGATIVE); BLOOD, URINE BLOOD NEGATIVE (NEGATIVE); COLOR, URINE YELLOW (YELLOW); GLUCOSE, URINE (UA) AUTO NEGATIVE (NEGATIVE); KETONE, URINE AUTO NEGATIVE (NEGATIVE); LEUKOCYTE ESTERASE, URINE AUTO TRACE (NEGATIVE); MUCUS, URINE SMALL (NEGATIVE); NITRITE, URINE AUTO NEGATIVE (NEGATIVE); PROTEIN, URINE AUTO NEGATIVE (NEGATIVE); RBC, URINE AUTO 4 /HPF (0-3); SPECIFIC GRAVITY URINE AUTO 1.016 (1.002-1.035); SQUAMOUS EPITHELIAL CELL UR AU 6 /HPF (0-6); WBC, URINE AUTO 2 /HPF (0-3)
[2021-07-02 14:40] VITALS: BP 124/68
--- NOTE | 2021-07-02 15:28 | IPN ---
PROGRESS NOTE DATE: 07/02/2021 SUBJECTIVE: Antonietta is a 30-year-old 7 para 5-1-0-5 now at 37 and 1/7th weeks gestation, EDC of 07/22/2021 based on last menstrual period and confirmed by first trimester ultrasound. She presents to Labor and Delivery with a report of decreased movement as well as feeling shaky and lightheaded approximately at 12:15 p.m. She denies vaginal bleeding, leakage of fluid, fetus has been active, she denies regular painful contractions. [facility] in the first trimester. course complicated by history of hemorrhage, chronic hypertension with labile blood pressures where she did not start Labetalol until late in the with a pressure mildly elevated in the 140s/90s. She has a history of depression, anxiety and PTSD and borderline oligohydramnios in May that has since resolved with the most recent DREA of 13.4 cm. OBSTETRIC LABS: O positive, antibody screen negative, gonorrhea and chlamydia negative, hepatitis B negative, hepatitis C negative, HIV negative, syphilis negative. Urine culture: No growth. Gestational diabetic screening 81. GBS is negative. On June 06 she underwent repeat preeclamptic labs with all normal results. Hemoglobin of 11.0, 32.1 hematocrit, platelets 177,000 and spot urine of 0.14 which is decreased from her baseline labs of spot urine of 0.17. On 06/16, she had a growth ultrasound with a cephalic presentation, 2540 grams, 5 pounds, 9 ounces, 46% percentile and 13.4 cm for fluid. OBSTETRIC HISTORY: August 2009: 37 weeks, 7 pound, 15 ounce female; April 2011, 42 weeks, 7 pound, 3 ounce male, vaginal delivery; May 2012, 40 weeks, 7 pound, 1 ounce male, vaginal delivery; November 2014, 40 weeks, 7 pound, 3 ounce female, vaginal delivery, August 2015, vaginal delivery 22 weeks, twin gestation, demise x2; September 2017, 39 weeks, 7 pound, 15 ounce female, vaginal delivery, hemorrhage. PAST MEDICAL HISTORY: Chronic hypertension, menorrhagia, chronic cystitis, nasal congestion, depression, knee pain, neutropenia, anemia, cardiac murmur, arthralgia, anxiety, PTSD. PAST SURGICAL HISTORY: None. FAMILY HISTORY: Hypertension, depression, anxiety, PTSD, high cholesterol, stomach cancer, lung cancer, diabetes. SOCIAL HISTORY: She is a former smoker. Denies alcohol and drug use. She does have a history of chlamydia. Denies history of abuse currently. She is single. There does not appear to be a father of the baby involved. ALLERGIES: Diflucan, aspirin, Bactrim, Macrobid and latex gloves. CURRENT MEDICATIONS: 1. Labetalol 100 mg p.o. b.i.d. 2. vitamin. OBJECTIVE: Upon arrival, temperature is 98.6, pulse is 86, blood pressure 99/60, 104/71, 114/70, 116/73 and 124/68. heart rate is 135 with moderate variability, positive accelerations, negative decelerations. Pattern of contractions: None. Sterile vaginal exam: Deferred. Her UA with a specific gravity of 1.016, negative protein, negative ketones, trace leukocytes, 4 RBCs, and 1+ bacteria. Bedside glucose 128. ASSESSMENT: Intrauterine at 37 and 1/7th weeks. heart rate is Category 1. Reassuring status, labile blood pressure. PLAN: Per consult with Dr. Rufina Silverio. The patient is to discontinue her Labetalol at this time. She is scheduled for induction of labor in six days. There is a cardiology referral pending due to the frequent episodes of dizziness and feeling lightheaded with palpitations. She does not have chest pain. I did review signs and symptoms of labor, movement counts and danger signs. I reviewed access to care. The patient and her aunt had all of their questions answered and are agreeable to discharge home.
== END 2021-07-02 14:50 | disposition home or self-care (01) ==
LOC: M LDO 13:11
PROVIDERS: ATTEND Advanced Practice Midwife
DX: O36.8190 Decreased fetal movements, unspecified trimester, not applicable or unspecified (principal); O10.013 Pre-existing essential hypertension complicating pregnancy, third trimester; Z3A.37 37 weeks gestation of pregnancy; Z87.891 Personal history of nicotine dependence; Z88.1 Allergy status to other antibiotic agents; Z88.6 Allergy status to analgesic agent; Z91.040 Latex allergy status
CPT/HCPCS: 59025; 81001; G0378; G0463

== ENCOUNTER 2021-07-08 18:12 | Inpatient (IN) | payer OTHER ==
[2021-07-08] VITALS (7 sets, daily range): BP systolic 121–160; BP diastolic 72–99
[~2021-07-08] VITALS: Ht 157.5 cm; Wt 72.0 kg
[~2021-07-08 18:12] MED LIST changes: +LABE100T4 PO; +PRENTAB9 PO; +TUMS500C PO
[2021-07-08 19:13] LABS: HEMATOCRIT 35.1 % (36.0-47.0); MEAN CORPUSCULAR HEMOGLOBIN 30.3 pg (27.0-33.0); MEAN CORPUSCULAR HGB CONC 34.2 g/dl (32.0-36.5); MEAN CORPUSCULAR VOLUME 88.6 fl (80.0-96.0); PLATELET COUNT, AUTOMATED 192 10^3/uL (150-450); RED BLOOD COUNT 3.96 10^6/uL (4.00-5.40); WHITE BLOOD COUNT 5.8 10^3/uL (4.0-10.0)
[2021-07-08] MEDS: miSOPROStol 50MCG 1/2 TABLET SL SCH (20:00)
--- NOTE | 2021-07-08 20:17 | HPEPDOC ---
Obstetrical History & Physical General Date of Admission Jul 08, 2021 at 18:12 History of Present Illness 30 yo female at 38 0/7 weeks by LMP c/w 9 week ultrasound (EDC=07/22/2021) presents for labor induction. The indication for delivery <39 weeks is chronic hypertension requiring anti-hypertensive medication. No contrac tions. no bleeding. Information Provided By: Patient Age: 30 : 7 Term: 5 Pre-term: 1 Abortions: 0 Livin Care Care: Good Care Dating Final EDC: Jul 22, 2021 Final EDC for Daily Update: Jul 08, 2021 Final EDC by: LMP, 1st trimester (US) Antepartum Course Diagnos(e)s chronic hypertension: Labetalol 100 mg BID during (Lisinopril prior to ) Past Medical History Past Obstetrical History : Past Obstetrical History: Multigravida Past Medical History Medical History med hx:1. chronic hypewrtension 2. h/o chlamydia OB hx: 1 08/23/2009 37 7 15 F epidural [place] 2 04/25/2011 42 7 3 M epidural [facility] Rosalva Dahler 3 06/01/2012 40 7 1 M epidural [place] 4 11/29/2014 40 7 3 F epidural [place] PPH 5 08/31/2015 Vaginal Twin gestation; Stillbirth over 20 weeks [place] PPH 6 10/01/2017 39 7 15 F epidural [place] PPH Surgical History: Denies/None Family History Significant Family History: No pertinent family hx Social History Marital Status: Single Psychosocial History: No pertinent psych hx * Smoker: non-smoker Drugs: denies Allergies Coded Allergies: aspirin (Verified Allergy, Intermediate, SWELLING, 06/06/21) fluconazole (Verified Allergy, Unknown, 07/08/21) latex (Verified Allergy, Unknown, 07/08/21) sulfamethoxazole (Verified Allergy, Unknown, 07/08/21) trimethoprim (Verified Allergy, Unknown, 07/08/21) Medications Scheduled Calcium Carbonate (Tums) 200 Mg Tab.chew, 2 TAB PO Q4H for cough and congestion No.137/Iron/Folic Acd ( Vitamin Tablet) 1 Each Tablet, 1 TAB PO DAILY Sertraline Hcl (Zoloft) 25 Mg Tablet, 0.5 TAB PO DAILY 1/2 tablet daily for one week. Then increase to 1 tablet daily. Physical Examination Physical Examination GENERAL: Alert and oriented times three. BREAST: . ABDOMEN: Gravid and non-tender to touch. FETUS: Is vertex (VTX) by sterile vaginal examination (SVE), fetus is vertex (VTX) by Cj. HEART RATE: Regular rate and rhythm. LUNGS: Clear to auscultation (CTA). EXTREMITIES: No edema. No clonus. Deep tendon reflexes (DTRs) + . Laboratory Data 24H LABS Laboratory Tests 2 07/08/21 18:24: Serology Scanned Report Hepatitis B Testing 07/08/21 18:53: Nucleated Red Blood Cells % (auto) 0.0, Syphilis Serology NONREACTIVE CBC/BMP Laboratory Tests 07/08/21 18:53 Pertinent Laboratoy Data Blood Type: O+ Group B Streptococcus: Negative Vaginal Examination Dilation: 2cm Effacement: 50% Station: -2 Cervical Consistency: Medium Cervical Position: Posterior Presentation: Cephalic presentation Assessment Variability: Moderate Accelerations: Positive Decelerations: None Tocometer Frequency: irregular Assessment/Plan Assessment Pt is a 30-year-old (G)7 para (P)[id number] at 38+0 weeks by LMP c/w 9-week ultrasound presents to Labor and Delivery for induction due to chronic hypertension. Plan Admit and orient. 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 Diet: reg. Group B Streptococcus (GBS) negative. Labs and intravenous (IV) per unit protocol. Anticipate normal spontaneous delivery (). Plan to use Misoprostol to initiate induction C-S as appropriate. LUL ESPINOSA MD Jul 08, 2021 20:17
[2021-07-09] VITALS (30 sets, daily range): BP systolic 117–196; BP diastolic 71–114
[2021-07-09] MEDS: miSOPROStol 50MCG 1/2 TABLET SL SCH (00:23)
[2021-07-09] MEDS ORDERED: LABETALOL 100MG/20ML VIAL IV STA (03:17)
--- NOTE | 2021-07-09 03:21 | IPNPDOC ---
Obstetrical Progress Note Date of Service Jul 09, 2021 Subjective c/o painful contractions. She might be leaking fluid per vagina. Objective Vital Signs Date Time Temp Pulse Resp B/P (MAP) Pulse Ox O2 Delivery O2 Flow Rate FiO2 07/09/21 01:08 55 176/99 (124) 07/08/21 18:35 97.9 16 Assessment Variability: Moderate Accelerations: Positive Decelerations: None Heart Rate Tracing: Category I Tocometer Contractions: Yes Frequency: regular Strength: palpated as strong Sterile Vaginal Examination Dilation: 4 cm Effacement (%): 80% Station: -2 Cervical Consistency: Soft Cervical Position: Posterior Postion/Presentation: Cephalic presentation Assessment and Plan Additional Comments 30 yo at 38 weeks with chronic hypertension, induction Give IV Labetalol 20 mg x 1 stat for severe range BP that has persisted Pt has received 2 doses of Misoprostol; no further doses needed at this time LUL ESPINOSA MD Jul 09, 2021 03:21
[2021-07-09] MEDS ORDERED: FENTANYL 2MCG/ML ROPIVACAINE 0.2% IN 0.9% NACL 100ML IVBAG As Ordered ONE (03:46)
[2021-07-09] MEDS ORDERED: FENTANYL/ROPIVACAINE/NACL BAG 100 ML EPIDURAL SCH (04:45)
[2021-07-09] MEDS ORDERED: diphenhydrAMINE 50MG/ML VIAL (J1200) IV PRN (04:45)
[2021-07-09] MEDS ORDERED: EPIDURAL/PCA KEYS XX PRN (04:45)
[2021-07-09] MEDS ORDERED: ONDANSETRON 4MG/2ML VIAL IV PRN (04:45)
[2021-07-09] MEDS ORDERED: LACTATED RINGER'S 1000 ML IV PRN (04:45)
[2021-07-09] MEDS ORDERED: EPIDURAL COMMENT XX SCH (04:45)
[2021-07-09] MEDS ORDERED: REFRIGERATOR IV KEYS XX PRN (04:45)
[2021-07-09] MEDS ORDERED: NALOXONE INJ 0.4MG/1ML VIAL (J2310 PER 1MG) IV PRN (04:45)
[2021-07-09] MEDS ORDERED: ePHEDrine SULFATE 25 MG/5 ML(5MG/ML) SYRINGE IV PRN (04:45)
[2021-07-09] MEDS ORDERED: OXYTOCIN 30 UNITS IN 0.9% NaCl 500ML IV BAG (J2590) As Ordered ONE (05:12)
[2021-07-09] MEDS ORDERED: IBUPROFEN 800 MG TAB PO PRN (05:40)
[2021-07-09] MEDS ORDERED: ACETAMINOPHEN TAB 650MG DOSE (2X325MG) PO PRN (05:40)
[2021-07-09] MEDS ORDERED: METHYLERGONOVINE MALEATE 0.2 MG TAB PO PRN (05:40)
[2021-07-09] MEDS ORDERED: MEASLES,MUMPS,RUBELLA VACCINE INJ (MMR-II) (90707) SC SCH (05:40)
[2021-07-09] MEDS ORDERED: ACETAMINOPHEN 500 MG TAB PO PRN (05:40)
[2021-07-09] MEDS ORDERED: RHOGAM 300 MCG (1500 IU) INJ (J2790) IM SCH (05:40)
[2021-07-09] MEDS ORDERED: IBUPROFEN 600MG TAB PO PRN (05:40)
[2021-07-09] MEDS ORDERED: OXYTOCIN DRIP 30 UNITS in IV 1 EA IV ONE (05:40)
[2021-07-09] MEDS ORDERED: CARBOPROST TROMETHAMINE 250 MCG/ML AMP IM ONE (05:40)
[2021-07-09] MEDS ORDERED: DOCUSATE SODIUM 100MG CAPSULE PO PRN (05:40)
--- NOTE | 2021-07-09 05:52 | DNPDOC ---
[facility] Delivery Note Delivery Note DATE OF DELIVERY: July 09, 2021 PREDELIVERY DIAGNOSIS: 38-1/7 weeks' gestation, chronic hypertension, induction of labor. POST DELIVERY DIAGNOSIS: Delivered. PROCEDURE: Spontaneous vaginal delivery. NURSE PRACTITIONER PER DIEM: Dr. Lul Espinosa MD ANESTHESIA: epidural. ESTIMATED BLOOD LOSS: 500 mL. FINDINGS: 7 pound 10 ounce female infant, Score 8/9, nuchal cord times x 1. DELIVERY SUMMARY: Patient is a 30-year-old 7 now para 6 who was admitted to labor and delivery for labor induction due to chronic hypertension. She received two doses of Misoprostol. She required one dose of IV Labetalol during labor to help control blood pressure. She received an epidural, before becoming completely dilated shortly thereafter. AROM performed. It took one contraction to deliver a 7 lb. 10 oz female infant. Tight nuchal cord x 1 delivered through. IV Pitocin administered immediately after delivery. No vaginal lacerations present. Placenta delivered spontaneously and appeared intact. She had a gush of blood shortly after delivery of the placenta. She has a history of post hemorrhage in 3 prior pregnancies. Pt administered Hemabate 0.25 mg IM x 1. She also received Cytotec 800 mcg's [place] x 1. Sponge counts correct. LUL ESPINOSA MD Jul 09, 2021 05:52
[2021-07-09] MEDS: LABETALOL 200 MG TAB PO SCH ×2 (08:45→20:55)
[2021-07-09] MEDS: PRENATAL VITAMINS CHEWABLE TABLET PO SCH (08:45)
[2021-07-09] MEDS ORDERED: PILL CUTTER 1 EACH XX PRN (19:50)
[2021-07-09] MEDS ORDERED: SERTRALINE HCL 25 MG TABLET PO SCH ×2 (21:00)
[2021-07-10 06:09] VITALS: BP 129/76
[2021-07-10] MEDS: PRENATAL VITAMINS CHEWABLE TABLET PO SCH (08:47)
[2021-07-10] MEDS: LABETALOL 200 MG TAB PO SCH (08:49)
== END 2021-07-10 13:15 | disposition home or self-care (01) | DRG 807 ==
LOC: M LDI 18:12 → M OBS 07-09 09:07
PROVIDERS: ADMIT Specialist; ATTEND Specialist
PROC: 3E0P7GC Introduction of Other Therapeutic Substance into Female Reproductive, Via Natural or Artificial Opening (ICD-10-PCS; 2021-07-08)
PROC: 10E0XZZ Delivery of Products of Conception, External Approach (ICD-10-PCS; principal; 2021-07-09)
PROC: 10907ZC Drainage of Amniotic Fluid, Therapeutic from Products of Conception, Via Natural or Artificial Opening (ICD-10-PCS; 2021-07-09)
DX: O10.02 Pre-existing essential hypertension complicating childbirth (principal); Z37.0 Single live birth; Z3A.38 38 weeks gestation of pregnancy; O69.1XX0 Labor and delivery complicated by cord around neck, with compression, not applicable or unspecified

== ENCOUNTER → 2023-04-14 | Outpatient (REF) | payer OTHER ==
[~2023-04-14] MED LIST changes: -LABE100T4 PO; +LABE100T6 PO
== END ==
LOC: M LAB REF 22:50
PROVIDERS: ATTEND Physician Assistant
DX: J02.9 Acute pharyngitis, unspecified (principal)

== ENCOUNTER → 2023-08-09 | Outpatient (REF) | payer OTHER | LOC: M LAB REF 18:12 | PROVIDERS: ATTEND Nurse Practitioner Family | DX: Z12.4 Encounter for screening for malignant neoplasm of cervix (principal) ==

== ENCOUNTER 2023-12-21 16:06 | Emergency (ER) | payer OTHER ==
[~2023-12-21] VITALS: Ht 162.6 cm; Wt 70.6 kg
[2023-12-21 16:07] VITALS: TEMP 97.4
[2023-12-21 17:17] LABS: BASO # 0.1 10^3/uL (0.0-0.2); BASO % 0.9 % (0.0-1.0); EOS # 0.1 10^3/uL (0.0-0.5); EOS % 2.1 % (0.0-3.0); HEMATOCRIT 38.7 % (36.0-47.0); HEMOGLOBIN 12.1 g/dl (12.0-15.5); LYMPH # 1.9 10^3/uL (1.5-5.0); LYMPH % 28.4 % (24.0-44.0); MEAN CORPUSCULAR HEMOGLOBIN 25.3 pg (27.0-33.0); MEAN CORPUSCULAR HGB CONC 31.3 g/dl (32.0-36.5); MONO # 0.6 10^3/uL (0.0-0.8); MONO % 8.8 % (2.0-8.0); NEUTROPHILS # 4.1 10^3/uL (1.5-8.5); NEUTROPHILS % 59.7 % (36.0-66.0); PLATELET COUNT, AUTOMATED 376 10^3/uL (150-450); RED BLOOD COUNT 4.78 10^6/uL (4.00-5.40); WHITE BLOOD COUNT 6.8 10^3/uL (4.0-10.0)
[2023-12-21 17:52] LABS: ALBUMIN 3.5 G/DL (3.2-5.2); ALKALINE PHOSPHATASE 48 U/L (46-116); ALT/SGPT 26 U/L (7.0-40); AST/SGOT 10 U/L (<34); BILIRUBIN,DIRECT < 0.1 MG/DL (<0.4); BILIRUBIN,TOTAL 0.2 MG/DL (0.3-1.2); BLOOD UREA NITROGEN 14 MG/DL (9-23); CALCIUM LEVEL 8.9 MG/DL (8.5-10.1); CARBON DIOXIDE LEVEL 25 MMOL/L (20-31); CHLORIDE LEVEL 108 MMOL/L (98-107); CREATININE FOR GFR 0.95 MG/DL (0.55-1.30); GLOMERULAR FILTRATION RATE > 60.0 (>60); GLUCOSE, FASTING 82 MG/DL (60-100); POTASSIUM SERUM 4.1 MMOL/L (3.5-5.1); SODIUM LEVEL 138 MMOL/L (136-145); TOTAL PROTEIN 7.7 G/DL (5.7-8.2)
[2023-12-21 18:03] LABS: CK-MB VALUE MASS < 1.0 NG/ML (<3.6)
[2023-12-21 18:06] LABS: CPK CREATINE PHOSPHOKINASE 90 U/L (34-145); MB/CK RELATIVE INDEX 1.11 (< OR =4)
[2023-12-21] MEDS ORDERED: ISOVUE-370 76% 100ML VIAL As Ordered ONE (18:07)
[2023-12-21 18:08] LABS: FREE T4 1.06 NG/DL (0.89-1.76); THYROID STIMULATING HORMONE 3.124 uIU/ML (0.55-4.78)
[2023-12-21 18:37] LABS: APPEARANCE, URINE HAZY (CLEAR); BACTERIA, URINE AUTO 1+ (NEGATIVE); BILIRUBIN, URINE AUTO NEGATIVE (NEGATIVE); BLOOD, URINE BLOOD 3+ (NEGATIVE); COLOR, URINE YELLOW (YELLOW); GLUCOSE, URINE (UA) AUTO NEGATIVE (NEGATIVE); KETONE, URINE AUTO NEGATIVE (NEGATIVE); LEUKOCYTE ESTERASE, URINE AUTO 3+ (NEGATIVE); MUCUS, URINE SMALL (NEGATIVE); NITRITE, URINE AUTO NEGATIVE (NEGATIVE); PROTEIN, URINE AUTO NEGATIVE (NEGATIVE); RBC, URINE AUTO 56 /HPF (0-3); SPECIFIC GRAVITY URINE AUTO 1.012 (1.002-1.035); SQUAMOUS EPITHELIAL CELL UR AU 2 /HPF (0-6); UROBILINOGEN, URINE AUTO 0.2 mg/dL (0.0-2.0); WBC, URINE AUTO 10 /HPF (0-3)
[2023-12-21 18:45] VITALS: BP 138/94; O2SAT 100
[2023-12-21 19:02] LABS: INR 1.16; PARTIAL THROMBOPLASTIN TIME 28.5 SECONDS (24.8-34.2); PROTHROMBIN TIME 14.4 SECONDS (12.5-14.5)
[2023-12-21 19:06] LABS: CK-MB VALUE MASS < 1.0 NG/ML (<3.6)
[2023-12-21 19:08] LABS: CPK CREATINE PHOSPHOKINASE 78 U/L (34-145); MB/CK RELATIVE INDEX 1.28 (< OR =4)
== END 2023-12-21 19:42 | disposition home or self-care (01) ==
LOC: M ED 16:06
DX: R06.00 Dyspnea, unspecified (principal); I10 Essential (primary) hypertension; Z88.2 Allergy status to sulfonamides; Z88.6 Allergy status to analgesic agent; Z91.040 Latex allergy status; Z79.899 Other long term (current) drug therapy
CPT/HCPCS: 36415; 71045; 71275; 80053; 81001; 82248; 82550; 82553; 83880; 84439; 84443; 85025; 85610; 85730; 93005; 93041; 94760; 99284; Q9967

== ENCOUNTER → 2024-03-22 | Outpatient (REF) | payer OTHER ==
[2024-03-22 17:14] LABS: APPEARANCE, URINE HAZY (CLEAR); BACTERIA, URINE AUTO 2+ (NEGATIVE); BILIRUBIN, URINE AUTO NEGATIVE (NEGATIVE); BLOOD, URINE BLOOD 1+ (NEGATIVE); COLOR, URINE STRAW (YELLOW); GLUCOSE, URINE (UA) AUTO NEGATIVE (NEGATIVE); KETONE, URINE AUTO NEGATIVE (NEGATIVE); LEUKOCYTE ESTERASE, URINE AUTO 3+ (NEGATIVE); NITRITE, URINE AUTO NEGATIVE (NEGATIVE); PROTEIN, URINE AUTO NEGATIVE (NEGATIVE); RBC, URINE AUTO 5 /HPF (0-3); SPECIFIC GRAVITY URINE AUTO 1.003 (1.002-1.035); SQUAMOUS EPITHELIAL CELL UR AU 2 /HPF (0-6); UROBILINOGEN, URINE AUTO 0.2 mg/dL (0.0-2.0); WBC, URINE AUTO 12 /HPF (0-3)
== END ==
LOC: M LAB REF 16:34
PROVIDERS: ATTEND Physician Assistant
DX: N39.0 Urinary tract infection, site not specified (principal)

== ENCOUNTER → 2024-03-30 | Outpatient (REF) | payer OTHER ==
[2024-03-30 17:58] LABS: Trichomonas vaginalis (AMP) NOT DETECTED (NEGATIVE)
[2024-03-30 18:22] LABS: GC DNA AMPLIFICATION NEGATIVE (NEGATIVE)
== END ==
LOC: M LAB REF 16:11
PROVIDERS: ATTEND Physician Assistant
DX: Z11.3 Encounter for screening for infections with a predominantly sexual mode of transmission (principal)

== ENCOUNTER → 2024-04-08 | Outpatient (REF) | payer OTHER | LOC: M LAB REF 19:55 | PROVIDERS: ATTEND Student in an Organized Health Care Education/Training Program | DX: R30.0 Dysuria (principal) ==

== ENCOUNTER → 2024-05-19 | Outpatient (REF) | payer OTHER | LOC: M PLALAB 15:26 | PROVIDERS: ATTEND Advanced Practice Midwife | DX: Z34.91 Encounter for supervision of normal pregnancy, unspecified, first trimester (principal) ==

== ENCOUNTER → 2024-05-26 | Outpatient (CLI) | payer OTHER ==
[2024-05-26 15:33] LABS: HEMATOCRIT 33.9 % (36.0-47.0); HEMOGLOBIN 10.7 g/dl (12.0-15.5); MEAN CORPUSCULAR HEMOGLOBIN 24.2 pg (27.0-33.0); MEAN CORPUSCULAR HGB CONC 31.6 g/dl (32.0-36.5); MEAN CORPUSCULAR VOLUME 76.5 fl (80.0-96.0); PLATELET COUNT, AUTOMATED 264 10^3/uL (150-450); RED BLOOD COUNT 4.43 10^6/uL (4.00-5.40); WHITE BLOOD COUNT 6.9 10^3/uL (4.0-10.0)
[2024-05-26 16:02] LABS: URIC ACID 3.4 MG/DL (3.1-7.8)
[2024-05-26 16:04] LABS: LDH LACTATE DEHYDROGENASE 140 U/L (120-246)
[2024-05-26 16:05] LABS: ALT/SGPT 11 U/L (7.0-40); AST/SGOT < 8 U/L (<34); BILIRUBIN,TOTAL 0.3 MG/DL (0.3-1.2); CREATININE FOR GFR 0.99 MG/DL (0.55-1.30); GLOMERULAR FILTRATION RATE > 60.0 (>60)
[2024-05-26 16:35] LABS: HIV 1&2 SCREEN NEGATIVE (NEGATIVE)
[2024-05-26 16:42] LABS: HEPATITIS C VIRUS ABY INDEX 0.03 INDEX (<0.8)
[2024-05-26 17:55] LABS: TOTAL PROTEIN,RANDOM URINE 21.2 MG/DL (0.0-14.0)
[2024-05-26 18:14] LABS: CREATININE,RANDOM URINE 286.3 MG/DL
[2024-05-26 21:36] LABS: GC DNA AMPLIFICATION NEGATIVE (NEGATIVE)
== END ==
LOC: M PLALAB 11:51
PROVIDERS: ATTEND Advanced Practice Midwife
DX: Z34.91 Encounter for supervision of normal pregnancy, unspecified, first trimester (principal); Z3A.00 Weeks of gestation of pregnancy not specified

== ENCOUNTER → 2024-06-07 | Outpatient (CLI) | payer OTHER | LOC: M PLALAB 16:27 | PROVIDERS: ATTEND Advanced Practice Midwife | DX: Z34.81 Encounter for supervision of other normal pregnancy, first trimester (principal) ==

== ENCOUNTER → 2024-07-21 | Outpatient (CLI) | payer OTHER | LOC: M WHC 08:14 | PROVIDERS: ATTEND Advanced Practice Midwife | DX: Z36.89 Encounter for other specified antenatal screening (principal); Z3A.14 14 weeks gestation of pregnancy ==

== ENCOUNTER → 2024-09-05 | Outpatient (CLI) | payer OTHER | LOC: M WHC 08:43 | PROVIDERS: ATTEND Obstetrics & Gynecology | DX: O09.522 Supervision of elderly multigravida, second trimester (principal) ==

== ENCOUNTER → 2024-09-06 | Outpatient (CLI) | payer OTHER ==
[2024-09-06 16:02] LABS: HEMATOCRIT 38.6 % (36.0-47.0); HEMOGLOBIN 12.4 g/dl (12.0-15.5); MEAN CORPUSCULAR HEMOGLOBIN 28.6 pg (27.0-33.0); MEAN CORPUSCULAR HGB CONC 32.1 g/dl (32.0-36.5); MEAN CORPUSCULAR VOLUME 89.1 fl (80.0-96.0); PLATELET COUNT, AUTOMATED 217 10^3/uL (150-450); RED BLOOD COUNT 4.33 10^6/uL (4.00-5.40); WHITE BLOOD COUNT 7.1 10^3/uL (4.0-10.0)
[2024-09-06 16:15] LABS: GLUCOSE CHALLENGE TEST 1 HOUR 107 MG/DL (LESS THAN 140)
[2024-09-06 16:47] LABS: HIV 1&2 SCREEN NEGATIVE (NEGATIVE)
[2024-09-06 16:55] LABS: HEPATITIS C VIRUS ABY INDEX 0.02 INDEX (<0.8)
== END ==
LOC: M PLALAB 09:14
PROVIDERS: ATTEND Obstetrics & Gynecology
DX: O09.522 Supervision of elderly multigravida, second trimester (principal)

== ENCOUNTER → 2024-10-25 | Outpatient (CLI) | payer OTHER ==
[2024-10-25 18:29] LABS: TOTAL PROTEIN,RANDOM URINE 19.6 MG/DL (0.0-14.0)
[2024-10-25 18:34] LABS: CREATININE,RANDOM URINE 104.7 MG/DL
[2024-10-25 18:51] LABS: HEMATOCRIT 36.3 % (36.0-47.0); HEMOGLOBIN 11.6 g/dl (12.0-15.5); MEAN CORPUSCULAR HEMOGLOBIN 28.4 pg (27.0-33.0); PLATELET COUNT, AUTOMATED 188 10^3/uL (150-450); RED BLOOD COUNT 4.08 10^6/uL (4.00-5.40); WHITE BLOOD COUNT 7.1 10^3/uL (4.0-10.0)
[2024-10-25 19:17] LABS: ALBUMIN 2.4 G/DL (3.2-5.2); ALKALINE PHOSPHATASE 79 U/L (35-104); ALT/SGPT 20 U/L (7.0-40); AST/SGOT 14 U/L (<34); BILIRUBIN,TOTAL 0.2 MG/DL (0.3-1.2); BLOOD UREA NITROGEN 14 MG/DL (9-23); CALCIUM LEVEL 9.2 MG/DL (8.5-10.1); CARBON DIOXIDE LEVEL 25 MMOL/L (20-31); CHLORIDE LEVEL 105 MMOL/L (98-107); CREATININE FOR GFR 0.78 MG/DL (0.55-1.30); GLOMERULAR FILTRATION RATE > 60.0 (>60); GLUCOSE, FASTING 92 MG/DL (60-100); POTASSIUM SERUM 4.1 MMOL/L (3.5-5.1); SODIUM LEVEL 137 MMOL/L (136-145); TOTAL PROTEIN 6.1 G/DL (5.7-8.2)
== END ==
LOC: M PLALAB 15:53
PROVIDERS: ATTEND Obstetrics & Gynecology
DX: O10.919 Unspecified pre-existing hypertension complicating pregnancy, unspecified trimester (principal); R30.0 Dysuria

== ENCOUNTER → 2024-11-02 | Outpatient (CLI) | payer OTHER ==
[2024-11-02 14:50] LABS: HEMATOCRIT 35.6 % (36.0-47.0); HEMOGLOBIN 11.7 g/dl (12.0-15.5); LDH LACTATE DEHYDROGENASE 155 U/L (120-246); MEAN CORPUSCULAR HGB CONC 32.9 g/dl (32.0-36.5); MEAN CORPUSCULAR VOLUME 88.3 fl (80.0-96.0); PLATELET COUNT, AUTOMATED 199 10^3/uL (150-450); RED BLOOD COUNT 4.03 10^6/uL (4.00-5.40); WHITE BLOOD COUNT 7.6 10^3/uL (4.0-10.0)
[2024-11-02 14:51] LABS: ALT/SGPT 34 U/L (7.0-40); AST/SGOT 26 U/L (<34); BILIRUBIN,TOTAL 0.3 MG/DL (0.3-1.2); CREATININE FOR GFR 0.63 MG/DL (0.55-1.30); GLOMERULAR FILTRATION RATE > 60.0 (>60)
[2024-11-02 14:57] LABS: URIC ACID 3.2 MG/DL (3.1-7.8)
[2024-11-02 15:02] LABS: TOTAL PROTEIN,RANDOM URINE 23.5 MG/DL (0.0-14.0)
[2024-11-02 15:07] LABS: CREATININE,RANDOM URINE 113.4 MG/DL
== END ==
LOC: M PLALAB 12:55
PROVIDERS: ATTEND Obstetrics & Gynecology
DX: O13.3 Gestational [pregnancy-induced] hypertension without significant proteinuria, third trimester (principal)

== ENCOUNTER → 2024-11-09 | Outpatient (CLI) | payer OTHER | LOC: M WHC 15:34 | PROVIDERS: ATTEND Obstetrics & Gynecology | DX: Z34.92 Encounter for supervision of normal pregnancy, unspecified, second trimester (principal) ==

== ENCOUNTER 2024-11-16 15:13 | Observation (INO) | payer OTHER ==
[~2024-11-16] VITALS: Ht 160 cm; Wt 81.6 kg
[2024-11-16] VITALS (21 sets, daily range): BP systolic 101–168; BP diastolic 54–98; O2SAT 98
[2024-11-16] MEDS ORDERED: FERR324T2 PO (15:30)
[2024-11-16] MEDS ORDERED: TUMS750C22 PO (15:31)
[2024-11-16] MEDS ORDERED: HOME MED LIST COMPLETE! XX SCH (15:35)
[2024-11-16 16:10] LABS: HEMATOCRIT 36.6 % (36.0-47.0); HEMOGLOBIN 12.1 g/dl (12.0-15.5); MEAN CORPUSCULAR HEMOGLOBIN 29.2 pg (27.0-33.0); MEAN CORPUSCULAR HGB CONC 33.1 g/dl (32.0-36.5); MEAN CORPUSCULAR VOLUME 88.2 fl (80.0-96.0); PLATELET COUNT, AUTOMATED 181 10^3/uL (150-450); RED BLOOD COUNT 4.15 10^6/uL (4.00-5.40)
[2024-11-16 16:31] LABS: TOTAL PROTEIN,RANDOM URINE 15.5 MG/DL (0.0-14.0)
[2024-11-16 16:36] LABS: CREATININE,RANDOM URINE 71.8 MG/DL
[2024-11-16 16:37] LABS: ALBUMIN 2.4 G/DL (3.2-5.2); ALKALINE PHOSPHATASE 83 U/L (35-104); ALT/SGPT 24 U/L (7.0-40); AST/SGOT 17 U/L (<34); BILIRUBIN,TOTAL 0.3 MG/DL (0.3-1.2); BLOOD UREA NITROGEN 11 MG/DL (9-23); CALCIUM LEVEL 8.9 MG/DL (8.5-10.1); CARBON DIOXIDE LEVEL 22 MMOL/L (20-31); CHLORIDE LEVEL 105 MMOL/L (98-107); GLOMERULAR FILTRATION RATE > 60.0 (>60); GLUCOSE, FASTING 83 MG/DL (60-100); POTASSIUM SERUM 3.6 MMOL/L (3.5-5.1); SODIUM LEVEL 136 MMOL/L (136-145); TOTAL PROTEIN 6.1 G/DL (5.7-8.2)
[2024-11-16] MEDS: NIFEdipine 30MG XL TAB PO STA (17:04)
[2024-11-16] MEDS: BETAMETHASONE SOLUSPAN 6MG/ML 5ML VIAL IM SCH (17:08)
== END 2024-11-17 00:42 | disposition home or self-care (01) ==
LOC: M LDO 15:13 → M LDI 16:50
PROVIDERS: ADMIT Obstetrics & Gynecology; ATTEND Obstetrics & Gynecology
DX: O10.013 Pre-existing essential hypertension complicating pregnancy, third trimester (principal); Z3A.35 35 weeks gestation of pregnancy; O09.523 Supervision of elderly multigravida, third trimester; Z79.899 Other long term (current) drug therapy; Z88.2 Allergy status to sulfonamides; Z88.6 Allergy status to analgesic agent; Z88.8 Allergy status to other drugs, medicaments and biological substances; Z91.040 Latex allergy status
CPT/HCPCS: 59025; 80053; 82570; 84156; 85027; 96372; G0463; J0702

== ENCOUNTER 2024-11-17 16:55 | Outpatient (CLI) | payer OTHER ==
[~2024-11-17] VITALS: Ht 160 cm; Wt 80.9 kg
[2024-11-17] VITALS (8 sets, daily range): BP systolic 123–138; BP diastolic 74–91
[~2024-11-17 16:55] MED LIST changes: +FERR324T2 PO; +TUMS750C22 PO
[2024-11-17] MEDS: BETAMETHASONE SOLUSPAN 6MG/ML 5ML VIAL IM ONE (17:32)
[2024-11-17] MEDS: NIFEdipine 30MG XL TAB PO STA (17:32)
== END 2024-11-17 18:19 | disposition home or self-care (01) ==
LOC: M LDO 16:55
PROVIDERS: ATTEND Advanced Practice Midwife
DX: O10.013 Pre-existing essential hypertension complicating pregnancy, third trimester (principal); O09.523 Supervision of elderly multigravida, third trimester; O99.343 Other mental disorders complicating pregnancy, third trimester; O09.213 Supervision of pregnancy with history of pre-term labor, third trimester; O09.40 Supervision of pregnancy with grand multiparity, unspecified trimester; O28.8 Other abnormal findings on antenatal screening of mother; F41.8 Other specified anxiety disorders; Z3A.36 36 weeks gestation of pregnancy
CPT/HCPCS: 59025; 96372; G0463; J0702

== ENCOUNTER 2024-11-24 09:23 | Inpatient (IN) | payer OTHER ==
[2024-11-24] VITALS (36 sets, daily range): BP systolic 123–176; BP diastolic 70–104
[~2024-11-24] VITALS: Ht 160 cm; Wt 80.2 kg
[2024-11-24] MEDS ORDERED: NIFE1TAB52 PO (09:49)
[2024-11-24] MEDS ORDERED: HOME MED LIST COMPLETE! XX SCH (09:55)
[2024-11-24 10:53] LABS: HEMATOCRIT 33.6 % (36.0-47.0); HEMOGLOBIN 11.2 g/dl (12.0-15.5); MEAN CORPUSCULAR HEMOGLOBIN 29.2 pg (27.0-33.0); MEAN CORPUSCULAR HGB CONC 33.3 g/dl (32.0-36.5); MEAN CORPUSCULAR VOLUME 87.7 fl (80.0-96.0); PLATELET COUNT, AUTOMATED 201 10^3/uL (150-450); RED BLOOD COUNT 3.83 10^6/uL (4.00-5.40); WHITE BLOOD COUNT 6.8 10^3/uL (4.0-10.0)
[2024-11-24 11:15] LABS: URIC ACID 3.2 MG/DL (3.1-7.8)
[2024-11-24 11:16] LABS: TOTAL PROTEIN,RANDOM URINE 34.9 MG/DL (0.0-14.0)
[2024-11-24 11:17] LABS: LDH LACTATE DEHYDROGENASE 149 U/L (120-246)
[2024-11-24 11:18] LABS: ALT/SGPT 15 U/L (7.0-40); AST/SGOT 12 U/L (<34); BILIRUBIN,TOTAL 0.4 MG/DL (0.3-1.2); CREATININE FOR GFR 0.56 MG/DL (0.55-1.30); GLOMERULAR FILTRATION RATE > 60.0 (>60)
[2024-11-24 11:20] LABS: CREATININE,RANDOM URINE 188.1 MG/DL
[2024-11-24 11:54] LABS: HEPATITIS C VIRUS ABY INDEX 0.02 INDEX (<0.8)
[2024-11-24] MEDS: miSOPROStol 50MCG 1/2 TABLET PO PRN (15:54)
[2024-11-24] MEDS: AMPICILLIN SOD 2 GM in DEXTROSE 5% (D5W) MINI-BAG PLU 100 ML IV ONE (16:06)
[2024-11-24] MEDS ORDERED: CARBOPROST TROMETHAMINE 250 MCG/ML AMP IM PRN (20:05)
[2024-11-24] MEDS ORDERED: LIDOCAINE 1% MDV 20ML VIAL INFIL PRN (20:05)
[2024-11-24] MEDS: PEN G POT 3,000,000 UNIT/50 ML 3,000,000 UNIT in IV 1 EA IV SCH (20:27)
[2024-11-24] MEDS: OXYTOCIN DRIP 30 UNITS in IV 1 EA IV SCH (20:33)
[2024-11-24] MEDS: LR 1,000 ML IV SCH (20:34)
[2024-11-24] MEDS ORDERED: EPIDURAL/PCA KEYS XX PRN (21:35)
[2024-11-24] MEDS ORDERED: LR 500 ML IV PRN (21:35)
[2024-11-24] MEDS ORDERED: ONDANSETRON 4MG 2ML VIAL IV PRN (21:35)
[2024-11-24] MEDS ORDERED: NALOXONE INJ 0.4MG/1ML VIAL IV PRN (21:35)
[2024-11-24] MEDS ORDERED: diphenhydrAMINE 50MG/ML VIAL IV PRN (21:35)
[2024-11-24] MEDS ORDERED: ePHEDrine SULFATE 25 MG/5 ML(5MG/ML) SYRINGE IVP PRN (21:35)
[2024-11-24] MEDS ORDERED: AMPICILLIN SOD 1 GM in DEXTROSE 5% (D5W) ADV/MINI-BAG 100 ML IV SCH (22:06)
[2024-11-24] MEDS: FENTANYL/ROPIVACAINE/NACL BAG 100 ML EPIDURAL SCH (23:01)
[2024-11-25] VITALS (38 sets, daily range): BP systolic 126–182; BP diastolic 60–101; O2SAT 98–100
[2024-11-25] MEDS: OXYTOCIN DRIP 30 UNITS in IV 1 EA IV PRN (05:07)
[2024-11-25] MEDS ORDERED: RHOGAM 300MCG (1500IU) INJ IM SCH (05:15)
[2024-11-25] MEDS ORDERED: CALCIUM CARBONATE 500 MG CHEW U/D PO PRN (05:15)
[2024-11-25] MEDS ORDERED: DOCUSATE SODIUM 100MG CAPSULE PO PRN (05:15)
[2024-11-25] MEDS ORDERED: ACETAMINOPHEN 500 MG TAB PO PRN (05:15)
[2024-11-25] MEDS ORDERED: ACETAMINOPHEN 325 MG TAB PO PRN (05:15)
[2024-11-25] MEDS: OXYTOCIN DRIP 30 UNITS in IV 1 EA IV SCH (05:56)
[2024-11-25] MEDS: TRANEXAMIC ACID INJection 1,000 MG in NS 100 ML IV PRN (05:57)
[2024-11-25] MEDS: LABETALOL 100MG/20ML VIAL IV STA (06:59)
[2024-11-25] MEDS: LR 1,000 ML IV SCH (07:48)
[2024-11-25] MEDS: PRENATAL VITAMINS CHEWABLE TABLET PO SCH (09:23)
[2024-11-25] MEDS: NIFEdipine 30MG XL TAB PO SCH (09:23)
[2024-11-25] MEDS: DIBUCAINE 1% OINTMENT 30GM TOP PRN (10:57)
[2024-11-25] MEDS: IBUPROFEN 600MG TAB PO PRN (14:58)
[2024-11-26 02:00] VITALS: BP 155/81; O2SAT 99
[2024-11-26] MEDS: IBUPROFEN 800 MG TAB PO PRN (03:43)
[2024-11-26 06:00] VITALS: BP 153/97; O2SAT 99
[2024-11-26 10:00] VITALS: BP 140/87; O2SAT 99
[2024-11-27] MEDS ORDERED: MEASLES,MUMPS,RUBELLA VACCINE INJ (MMR-II) SC.IMMUN ONE (09:00)
== END 2024-11-26 13:00 | disposition home or self-care (01) | DRG 560 ==
LOC: M LDI 09:23 → M OBS 11-25 09:08
PROVIDERS: ADMIT Obstetrics & Gynecology; ATTEND Obstetrics & Gynecology
PROC: 3E0P7GC Introduction of Other Therapeutic Substance into Female Reproductive, Via Natural or Artificial Opening (ICD-10-PCS; 2024-11-24)
PROC: 10E0XZZ Delivery of Products of Conception, External Approach (ICD-10-PCS; principal; 2024-11-25)
DX: O10.02 Pre-existing essential hypertension complicating childbirth (principal); O72.1 Other immediate postpartum hemorrhage; Z3A.37 37 weeks gestation of pregnancy; Z88.2 Allergy status to sulfonamides; Z88.6 Allergy status to analgesic agent; Z88.8 Allergy status to other drugs, medicaments and biological substances; Z91.040 Latex allergy status; Z79.899 Other long term (current) drug therapy; Z37.0 Single live birth

== ENCOUNTER → 2025-03-02 | Outpatient (CLI) | payer OTHER ==
[~2025-03-02] MED LIST changes: +NIFE1TAB52 PO
[2025-03-02 12:51] LABS: HEMATOCRIT 42.8 % (36.0-47.0); MEAN CORPUSCULAR HEMOGLOBIN 28.3 pg (27.0-33.0); MEAN CORPUSCULAR HGB CONC 32.7 g/dl (32.0-36.5); MEAN CORPUSCULAR VOLUME 86.5 fl (80.0-96.0); PLATELET COUNT, AUTOMATED 237 10^3/uL (150-450); RED BLOOD COUNT 4.95 10^6/uL (4.00-5.40); WHITE BLOOD COUNT 5.7 10^3/uL (4.0-10.0)
[2025-03-02 13:24] LABS: PERCENT SATURATION 32.6 % (13.2-45.0)
[2025-03-02 13:27] LABS: FERRITIN 34.4 NG/ML (7.3-270.7)
== END ==
LOC: M LAB 12:08
PROVIDERS: ATTEND Physician Assistant
DX: N93.9 Abnormal uterine and vaginal bleeding, unspecified (principal)

== ENCOUNTER → 2025-03-10 | Outpatient (CLI) | payer OTHER ==
[2025-03-10 11:20] LABS: BLOOD UREA NITROGEN 25 MG/DL (9-23); CARBON DIOXIDE LEVEL 23 MMOL/L (20-31); CHLORIDE LEVEL 108 MMOL/L (98-107); CREATININE FOR GFR 0.79 MG/DL (0.55-1.30); GLOMERULAR FILTRATION RATE > 90.0 (>60); GLUCOSE, FASTING 111 MG/DL (60-100); MAGNESIUM LEVEL 1.8 MG/DL (1.8-2.4); POTASSIUM SERUM 4.2 MMOL/L (3.5-5.1); SODIUM LEVEL 138 MMOL/L (136-145)
[2025-03-10 11:22] LABS: THYROID STIMULATING HORMONE 0.905 uIU/ML (0.55-4.78)
[2025-03-10 11:23] LABS: FREE T4 1.05 NG/DL (0.89-1.76)
== END ==
LOC: M LAB 10:02
PROVIDERS: ATTEND Physician Assistant
DX: I10 Essential (primary) hypertension (principal); R42 Dizziness and giddiness

== ENCOUNTER → 2025-03-21 | Outpatient (CLI) | payer OTHER | LOC: M RAD 15:06 | PROVIDERS: ATTEND Physician Assistant | DX: N93.9 Abnormal uterine and vaginal bleeding, unspecified (principal) ==

== ENCOUNTER → 2025-07-05 | Outpatient (CLI) | payer OTHER | LOC: M WHC 10:50 | PROVIDERS: ATTEND Nurse Practitioner Family | DX: N83.201 Unspecified ovarian cyst, right side (principal) ==

== ENCOUNTER → 2025-07-15 | Outpatient (REF) | payer OTHER ==
[2025-07-15 17:01] LABS: APPEARANCE, URINE CLOUDY (CLEAR); BACTERIA, URINE AUTO 1+ (NEGATIVE); BILIRUBIN, URINE AUTO NEGATIVE (NEGATIVE); BLOOD, URINE BLOOD NEGATIVE (NEGATIVE); GLUCOSE, URINE (UA) AUTO NEGATIVE (NEGATIVE); KETONE, URINE AUTO 1+ mg/dL (NEGATIVE); LEUKOCYTE ESTERASE, URINE AUTO 3+ (NEGATIVE); MUCUS, URINE SMALL (NEGATIVE); NITRITE, URINE AUTO POSITIVE (NEGATIVE); PROTEIN, URINE AUTO 1+ mg/dL (NEGATIVE); RBC, URINE AUTO 2 /HPF (0-3); SPECIFIC GRAVITY URINE AUTO 1.028 (1.002-1.035); SQUAMOUS EPITHELIAL CELL UR AU 21 /HPF (0-6); UROBILINOGEN, URINE AUTO 0.2 mg/dL (0.0-2.0); WBC, URINE AUTO 74 /HPF (0-3)
== END ==
LOC: M LAB REF 16:09
DX: N39.0 Urinary tract infection, site not specified (principal)

== ENCOUNTER 2025-09-01 08:17 | Emergency (ER) | payer OTHER ==
[~2025-09-01] VITALS: Ht 157.5 cm; Wt 65.3 kg
[2025-09-01 09:14] LABS: BASO # 0.0 10^3/uL (0.0-0.2); BASO % 0.6 % (0.0-1.0); EOS # 0.2 10^3/uL (0.0-0.5); EOS % 2.2 % (0.0-3.0); LYMPH # 1.2 10^3/uL (1.5-5.0); LYMPH % 17.7 % (24.0-44.0); MONO # 0.4 10^3/uL (0.0-0.8); MONO % 6.1 % (2.0-8.0); NEUTROPHILS # 4.9 10^3/uL (1.5-8.5); NEUTROPHILS % 73.3 % (36.0-66.0); PLATELET COUNT, AUTOMATED 273 10^3/uL (150-450)
[2025-09-01 09:59] LABS: HCG, SERUM QUALITATIVE NEGATIVE (NEGATIVE)
[2025-09-01] MEDS ORDERED: ISOVUE-370 76% 100 ML VIAL As Ordered ONE (10:03)
[2025-09-01] MEDS: CYCLOBENZAPRINE 5 MG TABLET PO ONE (10:58)
[2025-09-01] MEDS: KETOROLAC 30 MG/ML 1 ML VIAL IV ONE (10:59)
[2025-09-01 11:15] VITALS: BP 151/91
[2025-09-01 11:17] VITALS: O2SAT 100
[2025-09-01] MEDS ORDERED: CYCL5TAB4 PO (11:39)
[2025-09-01 11:57] VITALS: TEMP 97.1
== END 2025-09-01 12:03 | disposition home or self-care (01) ==
LOC: EDBD 08:17 → M ED 08:17
DX: S13.4XXA Sprain of ligaments of cervical spine, initial encounter (principal); Y92.019 Unspecified place in single-family (private) house as the place of occurrence of the external cause; Y93.9 Activity, unspecified; Y99.9 Unspecified external cause status; Z88.2 Allergy status to sulfonamides; Z88.6 Allergy status to analgesic agent; Z88.8 Allergy status to other drugs, medicaments and biological substances; Z91.040 Latex allergy status; Z79.899 Other long term (current) drug therapy; Z79.810 Long term (current) use of selective estrogen receptor modulators (SERMs)
CPT/HCPCS: 70498; 72125; 80047; 84703; 85025; 96374; 99284; J1885; Q9967